=== PATIENT | female | born 1985 | race African-American/Black ===

== ENCOUNTER 2020-09-06 12:04 | Emergency (ER) | payer OTHER, SELFPAY ==
[2020-09-06 12:15] VITALS: BP 122/73; PULSE 124; RESP 18; TEMP 36.6; O2SAT 100
--- NOTE | 2020-09-06 12:28 | ED.SKABFB ---
HPI - Skin/Abscess/Foreign Bdy General Chief complaint: Skin/Abscess/Foreign Body Stated complaint: Boil Time Seen by Provider: 09/06/20 12:28 Source: patient Mode of arrival: ambulatory Limitations: no limitations History of Present Illness HPI narrative: Davis Sevilla is a 34 yo female with a PMH of WPW with perianal swelling and pain with abscess at R of anus - started 3-4 days ago- indurated and very tender 06/17 Related Data Home Medications Medication Instructions Recorded Confirmed propranolol 40 mg PO PRN 09/06/20 09/06/20 valacyclovir 500 mg PO DAILY 09/06/20 09/06/20 Allergies Allergy/AdvReac Type Severity Reaction Status Date / Time No Known Allergies Allergy Unverified 09/06/20 12:20 Review of Systems Review of Systems: Narrative: CONSTITUTIONAL: Denies fever, chills, sweats. EYES: Denies visual changes, redness, discharge. ENT: Denies rhinorrhea, congestion, sore throat, otalgia. CARDIOVASCULAR: Denies chest pain, palpitations, edema. RESPIRATORY: Denies dyspnea, wheezing, cough GASTROINTESTINAL: Denies abdominal pain, nausea, vomiting, diarrhea. GENITOURINARY: Denies dysuria, hematuria, abnormal discharge indurated lesion to right of anus SKIN: Denies rash or itching. NEUROLOGIC: Denies numbness, or focal weakness. PSYCHIATRIC: Denies anxiety or depression. PMFSH Past Medical History Medical History (Updated 09/06/20 @ 12:56 by Audra Stewart CNP) HSV (herpes simplex virus) anogenital infection Ksset-Xlfsbvhqz-Myjsb (WPW) syndrome Family History Family History Other Heart disease Hypertension Social History Social History Smoking packs per day: 0.25 Smoking cigarettes per day: 5.0 Smoking status: Current every day smoker Alcohol intake: current Gender identity (if verbalized by the patient): Female Comments At time of signature, I agree with nursing past medical, surgical, social and family history. There is no relevant family history pertinent to the presenting complaint. Exam Narrative: Exam Narrative: GENERAL: This is a well-nourished, well-developed patient, in mild distress. HEAD: normocephalic, atraumatic. EYES: Sclera clear/white. Vision is grossly intact. EARS: External ears normal,. Hearing grossly intact. NOSE: External nose normal without nasal discharge, nares without redness, no rhinorrhea. THROAT: Mucous membranes moist, p NECK: Neck supple, CARDIOVASCULAR: Tachycardic rate and rhythm without murmurs, gallops, or rubs. RESPIRATORY: Clear to auscultation. Breath sounds equal bilaterally. No wheezes, rales, or rhonchi. GASTROINTESTINAL: Abdomen soft, SKIN: warm, intact with no suspicious lesions or rash, good texture and turgor. hemorrhoid on R of anus. Perianal induration to the right of anus that is tender and has weber on it NEURO: awake, alert, and oriented to person, place and time. There were no obvious focal neurologic abnormalities. Steady gait EXTREMITIES: Normal range of motion. BACK: Nontender without deformity Course Course Emergency Course: Came to express care with indurated lesion to the right of anus I&D of induration; started on Bactrim and Keflex-instructions keep area clean and dry Follow-up with PCP Vital Signs Vital signs: Vital Signs Temperature 97.9 F 09/06/20 12:15 Pulse Rate 124 H 09/06/20 12:15 Respiratory Rate 18 09/06/20 12:15 Blood Pressure 122/73 09/06/20 12:15 Pulse Oximetry 100 09/06/20 12:15 Temperature 97.9 F 09/06/20 12:15 Pulse Rate 124 H 09/06/20 12:15 Respiratory Rate 18 09/06/20 12:15 Blood Pressure 122/73 09/06/20 12:15 Pulse Oximetry 100 09/06/20 12:15 Procedures Abscess I/D mali-rectal: Date of Incision: 09/06/20 Time of Incision: 12:35 Side (if applicable): right Local Anesthetic: lidocaine 1% Amount of anesthe
[2020-09-06] MEDS: LIDOCAINE HCL 1% LOCAL INJ 20 ML VIAL 3 ML INFILTRATE (12:47)
== END 2020-09-06 13:00 | disposition home or self-care (01) ==
PROVIDERS: Emergency Provider Nurse Practitioner; PCP Physician Assistant
DX: K61.0 Anal abscess (principal); F17.210 Nicotine dependence, cigarettes, uncomplicated; I45.6 Pre-excitation syndrome
CPT/HCPCS: 46050; 99213; G0463

== ENCOUNTER 2022-01-29 14:42 | Outpatient (CLI) | payer OTHER, SELFPAY ==
[2022-01-29] VITALS (8 sets, daily range): BP systolic 112–127; BP diastolic 67–78; PULSE 84–97; BMI 25.9
[2022-01-29 15:32] LABS: Basophils Percent Auto 0.2 % (0.2-1.2); Eosinophils Absolute Auto 0.1 K/mm3 (0-0.3); Eosinophils Percent Auto 1.2 % (0-4.4); Hematocrit 29.3 % (37.0-47.0); Hemoglobin 9.8 g/dL (12.0-15.0); Immature Granulocyte Absolute 0.04 K/mm3 (0.00-0.031); Immature Granulocyte Percent A 0.7 % (0-0.5); Lymphocytes Absolute Auto 1.45 K/mm3 (0.9-3.2); Lymphocytes Percent Auto 24.6 % (18.3-44.2); Mean Corpuscular HGB Conc 33.4 g/dl (32-36); Mean Corpuscular Hemoglobin 26.2 pg (26-34); Mean Corpuscular Volume 78.3 fl (80-100); Mean Platelet Volume 8.9 fl (7.4-10.4); Monocytes Absolute Auto 0.5 K/mm3 (0.1-0.6); Neutrophils Absolute Auto 3.9 K/mm3 (1.3-6.7); Neutrophils Percent Auto 65.3 % (45.5-73.1); Platelet Count Result 245 k/mm3 (150-375); Red Blood Count 3.74 M/mm3 (4.2-5.4); Red Cell Distribution Width 14.7 % (11.5-14.5); White Blood Count 5.9 K/mm3 (4.5-10.0)
[2022-01-29 15:36] LABS: Add Urine Microscopic? YES; Appearance Urine Clear (Clear); Bilirubin Urine Negative (Negative); Blood Urine 1+ (Negative); Color Urine Yellow (Yellow); Glucose Urine UA Negative (Negative); Ketones Urine Trace mg/dL (Negative); Leukocyte Esterase Ur Negative LEU/UL (Negative); Mucus Urine Rare /lpf; Nitrate Urine Negative (Negative); Protein Urine Negative (Negative); RBC Urine 21-50 /hpf (0-2); Specific Grav Ur 1.025 (1.001-1.035); Squamous Epithelial Cell Urine Rare /hpf (Few); WBC Urine 0-3 /hpf
[2022-01-29 15:40] LABS: Creatinine Urine 164.8 mg/dL; Total Protein Urine Random 8 mg/dL; Ur Ttl Prot Creatinine Ratio 0.05 mg/mg (0-0.20)
[2022-01-29 15:42] LABS: Alanine Aminotransferase 22 U/L (4-35); Albumin Level 3.7 g/dL (3.5-5.1); Alkaline Phosphatase 118 U/L (38-126); Anion Gap 7 mmol/L (8-16); Aspartate Amino Transferase 25 U/L (14-36); Bilirubin,Total 0.1 mg/dL (0.2-1.3); Blood Urea Nitrogen 8 mg/dL (7-17); Carbon Dioxide 21 mmol/L (22-30); Chloride 109 mmol/L (98-107); Estimated CRCL calculation 106 ml/min; Estimated Glomerular Filt Rate > 60; Glucose 112 mg/dL (65-110); Potassium 3.5 mmol/L (3.4-5.0); Sodium 137 mmol/L (137-145); Uric Acid 4.1 mg/dL (2.5-7.5)
--- NOTE | 2022-01-29 16:07 | PC.NURSE ---
Dr. Ludwig informed of BP's and lab results including RBC's in urine. Discussed non-reactive NST with moderate variability and no decels. MD wants to come down and see pt. If NST not reactive in another 30 mins, order a BPP.
--- NOTE | 2022-01-29 17:01 | PC.NURSE ---
Dr. Ludwig on unit to see pt. Informed FHR tracing became reactive.
== END 2022-01-29 17:48 | disposition home or self-care (01) ==
LOC: ANHOBOP 14:53 → ANHOBPP 14:53
PROVIDERS: PCP Physician Assistant; Visit Provider Student in an Organized Health Care Education/Training Program
DX: O13.9 Gestational [pregnancy-induced] hypertension without significant proteinuria, unspecified trimester (principal); Z3A.00 Weeks of gestation of pregnancy not specified
CPT/HCPCS: 36415; 59025; 80053; 81001; 82570; 84156; 84550; 85025; 87086; 99199

== ENCOUNTER 2023-11-30 15:49 | Outpatient (CLI) | payer OTHER, SELFPAY ==
--- NOTE | ~2023-11-30 | US_ITS ---
EXAMINATION: US pelvic complete w TV DATE: 11/30/2023 17:07 INDICATION: Irregular menstruation. Comparison:No prior studies for comparison. TECHNIQUE: Multiple transabdominal and endovaginal sonographic images of the pelvis performed. FINDINGS: The uterus measures 6.8 x 3.6 x 5.8 cm. Uterus is retroverted. The endometrial complex nestor ures 5. The right ovary measures 4.1 x 2.2 x 2.6 cm and the left ovary measures 2.6 x 1.5 x 1.2 cm. There ar e small follicles in each ovary. Normal doppler signal in both ovaries. There is free fluid in the pelvis. There are no abnormal masses seen on either side. IMPRESSION: 1. Unremarkable pelvic ultrasound. Reviewed, dictated and finalized at location B. AMAKER
== END 2023-11-30 15:50 | disposition home or self-care (01) ==
PROVIDERS: PCP Physician Assistant; Visit Provider Obstetrics & Gynecology
DX: N92.6 Irregular menstruation, unspecified (principal)
CPT/HCPCS: 76830; 76856

== ENCOUNTER 2024-03-25 09:09 | Emergency (ER) | payer OTHER, SELFPAY ==
--- NOTE | ~2024-03-25 | XR_ITS ---
EXAMINATION: XR abdomen/kub 1V DATE: 03/25/2024 10:23 INDICATION: Constipation. TECHNIQUE: A supine view of the abdomen on 2 radiographs was obtained. COMPARISON: None. FINDINGS: There are no dilated loops of bowel. There is a moderate volume of stool in the colon. Calc ifications in the pelvis are likely phleboliths. IMPRESSION: 1. Nonobstructive bowel gas pattern. Reviewed, dictated and finalized at location A.
[2024-03-25 09:21] VITALS: BP 119/85; PULSE 62; RESP 16; TEMP 36.6; O2SAT 100
--- NOTE | 2024-03-25 10:14 | ED.ABDPAIN ---
HPI - Abdominal Pain General Chief Complaint: Abdominal Pain Stated Complaint: bowel obstruction Time Seen by Provider: 03/25/24 09:45 History of Present Illness HPI narrative: This is a 38-year-old female, with recent history stroke, aspirin and Plavix, who presents to the emergency department complaining of constipation. She states he has 1 limping with past small amount of stool. She was able to pass gas today. She complains of very mild cramping abdominal pain. She denies nausea, vomiting and has no other complaints at this time. Related Data Home Medications Medication Instructions Recorded Confirmed diltiazem HCl 120 mg 120 mg PO DAILY 01/29/22 07/19/23 capsule,extended release 24 hr, controlled (DILT-XR) Allergies Allergy/AdvReac Type Severity Reaction Status Date / Time No Known Allergies Allergy Verified 07/19/23 07:39 Review of Systems Review of Systems: Menstrual period ongoing All systems reviewed & are unremarkable except as noted in HPI and below PMFSH Past Medical History Medical History History of 12/20/2002-D&C History of vaginal delivery x 3 HSV (herpes simplex virus) anogenital infection Acdem-Cnnwtefzr-Gqykv (WPW) syndrome Surgical History Surgical History History of radiofrequency ablation (RFA) procedure for cardiac arrhythmia 2018 [place] teeth removed 2016 Family History Family History Mother Heart disease Grandparent Asthma Other Hypertension Social History Social History Smoking packs per day: 0.25 Smoking cigarettes per day: 5.0 Smoking status: Former smoker Alcohol intake: former Alcohol use details: Not since Substance use: never Gender identity (if verbalized by the patient): Female Exam Narrative: GENERAL: Well-developed, well-nourished, and in no acute distress. HEAD: Normocephalic, atraumatic. EYES: PERRLA and EOMI. CHEST: Clear to auscultation. No respiratory distress. No wheezes rales or rhonchi HEART: Regular rate and rhythm. No murmur heard. Normal peripheral pulses. ABDOMEN: Soft, nontender, nondistended, normal active bowel sounds. NEURO: Alert and oriented x3. No focal deficit. Moving all 4 limbs spontaneously PSYCH: Normal mood and affect. Course Course Emergency Course: 11:10 - KUB not concerning for obstructive pattern and shows a moderate volume of stool. Enema pending. 12:37 - The patient had a small bowel movement after an enema. Will discharge with recommendation for laxatives and enema at home. I discussed the findings and recommendations with the patient. Discussed return and emergency precautions including signs/symptoms of acute abdomen and bowel obstruction. The patient voiced understanding and agreement with the plan. All questions answered to her satisfaction. Vital Signs Vital signs: Vital Signs Temperature 98 F 03/25/24 09:21 Pulse Rate 62 03/25/24 09:21 Respiratory Rate 16 03/25/24 09:21 Blood Pressure 119/85 03/25/24 09:21 Pulse Oximetry 100 03/25/24 09:21 Temperature 97.8 F 03/25/24 12:51 Pulse Rate 64 03/25/24 12:51 Respiratory Rate 15 03/25/24 12:51 Blood Pressure 121/86 03/25/24 12:51 Pulse Oximetry 98 03/25/24 12:51 MDM - Abdominal Pain MDM Narrative Medical decision making narrative: Plan: Imaging, abdomen, reassess Differential Diagnosis Differential diagnosis: Likely constipation, small bowel obstruction and other Imaging Data Radiologist's impression: ITS Impressions Abdomen X-Ray 03/25/24 10:27 IMPRESSION: 1. Nonobstructive bowel gas pattern. Discharge Plan Discharge Clinical Impression: Constipation Qualifiers: Constipation type: unspecified constipation type Qualif
[2024-03-25 12:51] VITALS: BP 121/86; PULSE 64; RESP 15; TEMP 36.6; O2SAT 98
== END 2024-03-25 12:53 | disposition home or self-care (01) ==
PROVIDERS: Emergency Provider Preventive Medicine Aerospace Medicine; PCP Physician Assistant
DX: K59.00 Constipation, unspecified (principal); I45.6 Pre-excitation syndrome
CPT/HCPCS: 74018; 99283

== ENCOUNTER 2024-07-04 17:44 | Observation (INO) | payer OTHER, SELFPAY ==
--- NOTE | ~2024-07-04 | XR_ITS ---
EXAMINATION: XR chest 1V portable DATE: 07/04/2024 18:45 INDICATION: Cerebrovascular accident. Left-sided numbness. TECHNIQUE: A single frontal view of the chest was obtained. COMPARISON: None. FINDINGS: There is no pneumonia, pleural effusion, or pneumothorax. The heart size is normal. IMPRESSION: 1. No acute cardiopulmonary disease. Reviewed, dictated and finalized at location A.
--- NOTE | ~2024-07-04 | MR_ITS ---
MRI of the brain Clinical History: TIA Technique: Axial and sagittal T1-weighted images were acquired. These were followed by axial T2-weigh radha, diffusion weighted, gradient, and FLAIR images. Findings: There is no abnormal signal in the brain parenchyma. No acute infarct, intracranial hemorrh age, or mass lesion. Ventricles and subarachnoid spaces are unremarkable. Orbits are unremarkable. Paranasal sinuses and m astoid air cells are essentially clear. Major intracranial flow voids appear intact. Sagittal midline structures are intact. IMPRESSION: Unremarkable exam. Reviewed, dictated and finalized at location M. IMPRESSION: Unremarkable exam.
--- NOTE | ~2024-07-04 | CT_ITS ---
EXAMINATION: CT brain wo con DATE: 07/04/2024 17:59 INDICATION: Left-sided weakness. TECHNIQUE: Computed tomography (CT) of the head was performed without intravenous contrast. The mA wa s adjusted according to patient size. Iterative reconstruction technique was employed. The dose-lengt h product was 605.33 mGy-cm. COMPARISON: Head CT 08/31/2018 FINDINGS: There is no intracranial hemorrhage, acute infarction, or abnormal intracranial mass lesion . The ventricles are normal in size. The mastoid air cells are normal. The paranasal sinuses are peyton r. The orbits are normal. IMPRESSION: 1. Normal brain. Reviewed, dictated and finalized at location A. IMPRESSION: 1. Normal brain.
--- NOTE | ~2024-07-04 | CT_ITS ---
EXAMINATION: CTA brain carotid DATE: 07/04/2024 18:24 INDICATION: Right-sided numbness. Vertebral artery dissection. TECHNIQUE: Computed tomographic angiography (CTA) of the head was performed with 100 mL Omnipaque-350 intravenous contrast. CTA of the neck was performed with intravenous contrast. Automated exposure co ntrol and iterative reconstruction technique were employed. The dose-length product was 1019.33 mGy-c m. Maximum intensity projection and volume rendered 3D-reconstructions were created by the technologi st on a separate workstation. COMPARISON: Head CT 07/04/2024 FINDINGS: HEAD CTA: There is no intracranial hemorrhage, acute infarction, or abnormal intracranial mass lesion . The ventricles are normal in size. The orbits are normal. There is mild mucosal thickening in the p aranasal sinuses. The mastoid air cells are normal. Left vertebral artery is dominant. There is no si gnificant stenosis of basilar artery or the posterior cerebral arteries. The posterior communicating arteries are normal. There is no significant stenosis of intracranial internal carotid arteries or an terior or middle cerebral arteries. Anterior communicating artery is normal. There is no aneurysm. NECK CTA: There is mild emphysema. There are no pathologically enlarged lymph nodes. There is no sign ificant stenosis of the vertebral arteries. There is no significant plaque in the proximal internal c arotid arteries. There is 0% stenosis of the proximal right internal carotid artery relative to altagracia l distal artery lumen diameter (NASCET criteria). There is 0% stenosis of the proximal left internal carotid artery relative to normal distal artery lumen diameter. There is kyphosis of cervical spine. IMPRESSION: 1. Normal brain. No aneurysm or significant intracranial arterial stenosis. 2. 0% stenosis of the proximal internal carotid arteries relative to normal distal artery lumen diame ters (NASCET criteria). 3. Normal vertebral arteries. Reviewed, dictated and finalized at location A. IMPRESSION: 1. Normal brain. No aneurysm or significant intracranial arterial stenosis. 2. 0% stenosis of the proximal internal carotid arteries relative to normal dis moira artery lumen diameters (NASCET criteria). 3. Normal vertebral arteries.
[2024-07-04 17:52] LABS: Glucose Point of Care 123 mg/dl (65-105)
--- NOTE | 2024-07-04 17:53 | ECG_ITS ---
Test Date: 2024-07-04 18:14:56 Measurements Intervals [place] Rate: 85 P: 52 IN: 87 QRS: -16 QRSD: 162 T: 146 QT: 427 QTc: 509 Interpretive Statements SINUS RHYTHM LEFT BUNDLE BRANCH BLOCK ABNORMAL ECG * No previous ECG available for comparison Electronically Signed On 07-06-2024 12:51:36 CDT by Vaughn Desouza M.D.
--- NOTE | 2024-07-04 18:04 | ED.NEUROSD ---
HPI - Neuro Symptoms/Deficit General Chief Complaint: Suspected CVA Stated Complaint: stroke symptom Time Seen by Provider: 07/04/24 17:51 History of Present Illness HPI Narrative: 38-year-old female presenting as a stroke alert. States that she recently had a stroke this feels similarly. States that she has numbness in her left arm and she feels like she is experiencing nystagmus. States that this is what happened last time. 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 states that she was left with residual numbness on the left side but today she felt weakness in her left arm. States that she again has pressure in her head as well. Further history limited secondary to acuity of condition. Related Data Home Medications Medication Instructions Recorded Confirmed diltiazem HCl 120 mg 120 mg PO DAILY 01/29/22 07/19/23 capsule,extended release 24 hr, controlled (DILT-XR) Allergies Allergy/AdvReac Type Severity Reaction Status Date / Time No Known Allergies Allergy Verified 07/19/23 07:39 Review of Systems Review of Systems: All systems reviewed & are unremarkable except as noted in HPI and below PMFSH Past Medical History Medical History History of 12/20/2002-D&C History of vaginal delivery x 3 HSV (herpes simplex virus) anogenital infection Kjwri-Ybykpgqgb-Tfnop (WPW) syndrome Surgical History Surgical History History of radiofrequency ablation (RFA) procedure for cardiac arrhythmia 2018 [place] teeth removed 2015 Family History Family History Mother Heart disease Grandparent Asthma Other Hypertension Social History Social History Smoking packs per day: 0.25 Smoking cigarettes per day: 5.0 Smoking status: Former smoker Alcohol intake: former Alcohol use details: Not since Substance use: never Gender identity (if verbalized by the patient): Female Exam Narrative: GENERAL: Nontoxic, no acute distress HEAD: Normocephalic, atraumatic. EYES: PERRLA and EOMI. ENT: grossly unremarkable NECK: Supple. CHEST: Clear to auscultation. No respiratory distress. HEART: Regular rate and rhythm ABDOMEN: Soft, nontender, nondistended EXTREMITIES: Normal range of motion SKIN: Warm, dry, no rash. NEURO: + left-sided sensory deficits with the patient states are chronic, 5/5 strength in all extremities, positive pronator drift on the left, no facial droop, aphasia, dysarthria PSYCH: Normal mood and affect. Course Vital Signs Vital signs: Vital Signs Temperature 98.2 F 07/04/24 18:08 Pulse Rate 95 07/04/24 18:08 Respiratory Rate 15 07/04/24 18:08 Blood Pressure 142/86 H 07/04/24 18:08 Pulse Oximetry 100 07/04/24 18:08 Oxygen Delivery Room Air 07/04/24 18:08 Temperature 98.5 F 07/04/24 21:09 Pulse Rate 83 07/04/24 21:09 Respiratory Rate 12 07/04/24 21:09 Blood Pressure 128/91 H 07/04/24 21:09 Pulse Oximetry 100 07/04/24 21:09 Oxygen Delivery Room Air 07/04/24 18:18 MDM - Neuro Symptoms/Deficit MDM Narrative Medical decision making narrative: 38-year-old female presenting as a stroke alert. NIH of 2 due to left arm drift and sensory deficits. The sensory deficits are chronic according to the patient. CTA brain/carotid w/o acute abnormalities. On re-evaluation, pt states the arm weakness feels like it has resolved. She continues to have 5/5 strength in all extremities. Spoke with neurology at [facility] as the patient was admitted there in the spring with a vertebral dissection. Advises MRI in the morning, no need for transfer. Call out to our neurologist. spoke with the hospitalist was accepted her for admission. MRI without contrast has been ordered. Patient is a
[2024-07-04 18:08] VITALS: BP 142/86; PULSE 95; RESP 15; TEMP 36.8; O2SAT 100
[2024-07-04 18:18] VITALS: BP 127/96; PULSE 90; PULSE 92; RESP 20; O2SAT 100
[2024-07-04 18:45] LABS: Basophils Percent Auto 0.5 % (0.2-1.2); Eosinophils Absolute Auto 0.1 K/mm3 (0-0.3); Eosinophils Percent Auto 1.4 % (0-4.4); Hematocrit 35.4 % (37.0-47.0); Hemoglobin 11.5 g/dL (12.0-15.0); Immature Granulocyte Absolute 0.01 K/mm3 (0.00-0.031); Immature Granulocyte Percent A 0.2 % (0-0.5); Lymphocytes Percent Auto 53.4 % (18.3-44.2); Mean Corpuscular HGB Conc 32.5 g/dl (32-36); Mean Corpuscular Volume 73.8 fl (80-100); Mean Platelet Volume 10.1 fl (7.4-10.4); Monocytes Absolute Auto 0.4 K/mm3 (0.1-0.6); Monocytes Percent Auto 8.8 % (2.6-8.5); Neutrophils Absolute Auto 1.5 K/mm3 (1.3-6.7); Neutrophils Percent Auto 35.7 % (45.5-73.1); Platelet Count Result 241 k/mm3 (150-375); Red Cell Distribution Width 14.4 % (11.5-14.5); White Blood Count 4.3 K/mm3 (4.5-10.0)
[2024-07-04 18:58] LABS: Alanine Aminotransferase 21 U/L (6-35); Albumin Level 4.4 g/dL (3.5-5.1); Alkaline Phosphatase 63 U/L (38-126); Anion Gap 12 mmol/L (4-12); Aspartate Amino Transferase 27 U/L (14-36); Bilirubin,Total 0.6 mg/dL (0.2-1.3); Blood Urea Nitrogen 12 mg/dL (7-17); Calcium 9.1 mg/dL (8.4-10.2); Carbon Dioxide 24 mmol/L (22-30); Chloride 100 mmol/L (98-107); Estimated CRCL calculation 65 ml/min; Estimated Glomerular Filt Rate > 60; Glucose 116 mg/dL (65-110); Potassium 3.4 mmol/L (3.4-5.0); Sodium 136 mmol/L (137-145)
[2024-07-04 19:07] LABS: Partial Thromboplastin Time 26.2 Seconds (22.3-36.8)
[2024-07-04 19:14] LABS: Troponin I < 0.012 ng/mL (0.000-0.034)
[2024-07-04 19:24] VITALS: BP 123/86; PULSE 81; RESP 12; O2SAT 100
[2024-07-04 21:02] LABS: Add Urine Microscopic? YES; Appearance Urine Clear (Clear); Bacteria Urine None Seen /hpf; Bilirubin Urine Negative (Negative); Blood Urine 1+ (Negative); Color Urine Yellow (Yellow); Glucose Urine UA Negative (Negative); Ketones Urine Negative (Negative); Leukocyte Esterase Ur Negative LEU/UL (Negative); Nitrate Urine Negative (Negative); Non Pathogenic Casts 0-2; Protein Urine Negative (Negative); RBC Urine 0-2 /hpf (0-2); Specific Grav Ur > 1.045 (1.001-1.035); Squamous Epithelial Cell Urine None Seen /hpf (Few); WBC Urine 0-5 /hpf (0-3); pH Urine 5.5 (5.0-9.0)
[2024-07-04 21:09] VITALS: BP 128/91; PULSE 83; RESP 12; TEMP 36.9; O2SAT 100
--- NOTE | 2024-07-04 21:11 | PC.NURSE ---
Called Dr. Magaña at 1926 and 2006.
[2024-07-04 21:13] LABS: Amphetamine Screen Urine Negative (Negative); Barbiturate Screen Urine Negative (Negative); Benzodiazepines Screen Urine Negative (Negative); Cannabinoid Screen Urine Negative (Negative); Cocaine Screen Urine Negative (Negative); Methadone Screen Urine Negative (Negative); Opiate Screen Urine Negative (Negative); Phencyclidine Screen Urine Negative (Negative)
--- NOTE | 2024-07-04 21:43 | ADMGEN ---
This patient, Davis Sevilla, was admitted to 2 Medical Room 260-01. Patient/family oriented to hospital policies and general routines including ID bracelet, bed and alarms, visiting hours, pain management, procedures, bathroom and other care routines, personal items, smoking policy, room service/diet, and visiting hours. Information on how to activate the Rapid Response Team has been discussed. Patient/Family are encouraged to report perceived risks to care and to ask questions if they do not understand what they are told or what they should do.
[2024-07-04 21:45] VITALS: BP 122/76; PULSE 77; RESP 18; TEMP 36.6; O2SAT 100
[2024-07-04 22:00] VITALS: BMI 25.4
[2024-07-05] VITALS: PULSE 105
--- NOTE | 2024-07-05 00:19 | PM.IMHP ---
H&P: HPI History of Present Illness Date/Time: 07/05/24 00:19 Chief Complaint: LUE weakness Narrative: This is a 38-year-old female with past medical history significant for hypertension, stroke, WPW. Patient presents to the emergency room due to weakness of left upper extremity. Patient has been her usual state of health. Denies any speech disturbance, denies any gait disturbance. Preliminary workup was unremarkable. Patient has been placed in observation for further evaluation management and treatment. EXAMINATION: CT brain wo con DATE: 07/04/2024 17:59 INDICATION: Left-sided weakness. TECHNIQUE: Computed tomography (CT) of the head was performed without intravenous contrast. The mA was adjusted according to patient size. Iterative reconstruction technique was employed. The dose-length product was 605.33 mGy-cm. COMPARISON: Head CT 08/31/2018 FINDINGS: There is no intracranial hemorrhage, acute infarction, or abnormal intracranial mass lesion. The ventricles are normal in size. The mastoid air cells are normal. The paranasal sinuses are clear. The orbits are normal. IMPRESSION: 1. Normal brain. EXAMINATION: CTA brain carotid DATE: 07/04/2024 18:24 INDICATION: Right-sided numbness. Vertebral artery dissection. TECHNIQUE: Computed tomographic angiography (CTA) of the head was performed with 100 mL Omnipaque-350 intravenous contrast. CTA of the neck was performed with intravenous contrast. Automated exposure control and iterative reconstruction technique were employed. The dose-length product was 1019.33 mGy-cm. Maximum intensity projection and volume rendered 3D-reconstructions were created by the technologist on a separate workstation. COMPARISON: Head CT 07/04/2024 FINDINGS: HEAD CTA: There is no intracranial hemorrhage, acute infarction, or abnormal intracranial mass lesion. The ventricles are normal in size. The orbits are normal. There is mild mucosal thickening in the paranasal sinuses. The mastoid air cells are normal. Left vertebral artery is dominant. There is no significant stenosis of basilar artery or the posterior cerebral arteries. The posterior communicating arteries are normal. There is no significant stenosis of intracranial internal carotid arteries or anterior or middle cerebral arteries. Anterior communicating artery is normal. There is no aneurysm. NECK CTA: There is mild emphysema. There are no pathologically enlarged lymph nodes. There is no significant stenosis of the vertebral arteries. There is no significant plaque in the proximal internal carotid arteries. There is 0% stenosis of the proximal right internal carotid artery relative to normal distal artery lumen diameter (NASCET criteria). There is 0% stenosis of the proximal left internal carotid artery relative to normal distal artery lumen diameter. There is kyphosis of cervical spine. IMPRESSION: 1. Normal brain. No aneurysm or significant intracranial arterial stenosis. 2. 0% stenosis of the proximal internal carotid arteries relative to normal distal artery lumen diameters (NASCET criteria). 3. Normal vertebral arteries. Review of Systems Review of Systems: LUE weakness [facility] Past Medical History Medical History History of 12/20/2002-D&C History of vaginal delivery x 3 HSV (herpes simplex virus) anogenital infection Bprxi-Nxhkedwfa-Pnoti (WPW) syndrome Surgical History Surgical History History of radiofrequency ablation (RFA) procedure for cardiac arrhythmia 2017 [place] teeth removed 2016 Family History Family History Mother Heart disease Grandparent Asthma Other Hypertension Social History Social History Smoking packs per day: 0.25 Smoking cigarettes per day: 5.0
[2024-07-05 04:00] VITALS: PULSE 90
[2024-07-05 06:00] VITALS: BP 111/71; PULSE 89; RESP 18; TEMP 36.6; O2SAT 98
[2024-07-05] MEDS: ASPIRIN 81 MG CHEWABLE TABLET PO (10:33)
[2024-07-05] MEDS: CLOPIDOGREL BISULFATE 75 MG TABLET PO (10:33)
[2024-07-05] MEDS: hydrALAZINE 10 MG TABLET PO (10:33)
[2024-07-05] MEDS: lisinopriL 5 MG TABLET PO (10:33)
[2024-07-05] MEDS: ACETAMINOPHEN 325 MG TABLET 650 MG PO (10:42)
--- NOTE | 2024-07-05 11:48 | WPDNEURCNPN ---
Assessment and Plan Assessment and plan (1) TIA (transient ischemic attack): Code(s): G45.9 - Transient cerebral ischemic attack, unspecified Status: Acute Plan TIA by history with previous evaluation as documented exam is completely non focal patient can be discharged on the same medication what she has been taking with instruction to follow with her family physician or neurologist as an outpatient. Consult date: 07/05/24 HPI: Davis Sevilla is a 38 year old female To the hospital through the emergency room with the history of having had stroke in the past. Complaining of numbness in her left upper extremity along with the experience of nystagmus and also making a statement that is what happened last time as well. 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 Patient has been taking diltiazem XR 120mg daily and she is not allergic to any medications. She does have ongoing history of being a former smoker former ,alcohol intake and her initial exam in the emergency room was consistent with a pronator drift on the left but no facial droop. Her vital signs were normal, CBC was normal, BMP was normal and complete lab was normal, CT of the head was negative ,CTA of the head and neck was negative for the bleed, aneurysm or any vascular stenosis, chest x-ray was negative she was continued on aspirin 81mg daily ,atorvastatin 40mg at night, hydralazine 10mg daily lisinopril 5mg daily, Review of Systems Review of Systems: All systems reviewed & are unremarkable except as noted in HPI and below PMFSH Past Medical History Medical History History of 12/20/2002-D&C History of vaginal delivery x 3 HSV (herpes simplex virus) anogenital infection Zvpwa-Tjdmpeodh-Gkctq (WPW) syndrome Surgical History Surgical History History of radiofrequency ablation (RFA) procedure for cardiac arrhythmia 2018 [place] teeth removed 2015 Family History Family History Mother Heart disease Grandparent Asthma Other Hypertension Social History Social History Smoking packs per day: 0.25 Smoking cigarettes per day: 5.0 Smoking status: Former smoker Tobacco type: cigarettes Alcohol intake: never Alcohol use details: Not since Substance use: never Substance use type: does not use Do You Feel Safe in your Home?: Yes Lack of Transportation: No Lack of Food: Never True Current Housing: I Have Housing Concerned About Future Housing: No Difficulty Paying Gas/Electric Bills: No Difficulty Paying for Meds: No Currently Unemployed: No Education: High School Diploma/GED Difficulty w/ Childcare or Family Care: No Gender identity (if verbalized by the patient): Female Spiritual care concerns: No Meds Home Medications and Allergies Home Medications Medication Instructions Recorded Confirmed Type aspirin 81 mg chewable tablet 81 mg PO DAILY 07/04/24 07/04/24 History atorvastatin 40 mg tablet 40 mg PO HS 07/04/24 07/04/24 History clopidogrel 75 mg tablet 75 mg PO DAILY 07/04/24 07/04/24 History docusate sodium 50 mg capsule 50 mg PO DAILY 07/04/24 07/04/24 History (Stool Softener) hydralazine 10 mg tablet 10 mg PO DAILY 07/04/24 07/04/24 History lisinopril 5 mg tablet 5 mg PO DAILY 07/04/24 07/04/24 History Allergies Allergy/AdvReac Type Severity Reaction Status Date / Time No Known Allergies Allergy Verified 07/19/23 07:39 Vital Signs Vital Signs - 24 hr 07/04/24 18:08 07/04/24 18:18 07/04/24 18:18 Temperature 36.8 C Pulse Rate 95 92 90 Respiratory Rate 15 20 20 Blood Pressure 14
--- NOTE | 2024-07-05 13:13 | PM.DS ---
DS: Admitting Diagnosis Discharge Date 07/05/2024 Admitting Diagnosis Left Arm Weakness DS: Discharge Diagnosis Discharge Diagnosis (1) Left arm weakness: Code(s): R29.898 - Other symptoms and signs involving the musculoskeletal system Status: Acute Plan Patient cleared for discharge per neurologist. Patient to follow-up with her PCP and her neurologist outpatient. DS: Summary Hospital Course Reason for hospitalization: Left arm weakness Hospital Course: Patient presented to the emergency room with the history of having had stroke in the past. She complained of numbness in her left upper extremity along with the experience of nystagmus and also making a statement that is what happened last time as well. She reported that her previous stroke was related to dissecting vertebral artery and she was left with residual numbness on the left side of her body in addition to the weakness in her left upper extremity. Patient has been taking diltiazem XR 120mg daily and she is not allergic to any medications. She does have ongoing history of being a former smoker former and alcohol intake. Her initial exam in the emergency room was consistent with a pronator drift on the left but no facial droop. Her vital signs were normal, CBC was normal, BMP was normal and complete lab was normal, CT of the head was negative ,CTA of the head and neck was negative for the bleed, aneurysm or any vascular stenosis, MRI brain unremarkable, chest x-ray negative. Patient has been seen by the neurologist and cleared for discharge with continuation of her previous medications, including aspirin 81mg daily, clopidogrel 75 mg, atorvastatin 40mg at night, hydralazine 10mg daily and lisinopril 5mg timmy. Patient's symptoms have completely resolved and she's medically stable for discharge. No acute distressful symptoms were noted or reported prior to discharge. Status at Discharge Functional status at discharge: independent ambulation Overall status at discharge: patient is back to baseline Time Spent with Patient Time attestation: Total time spent providing and/or coordinating discharge services: Time spent: Greater than 30 minutes Exam Narrative: General: Well appearing, no acute distress. HEENT: Atraumatic, PERRL, EOMI. Neck: Supple. Cardiovascular: RRR, no murmurs. Respiratory: Lungs clear bilaterally. GI: Soft, non-tender, +ve bowel sounds on all quadrants. Skin: Warm and dry, no lesions noted. Extremities: No edema noted. Neurology: Well oriented. No focal neuro deficits noted. Psych: Pleasant and co-operative. DS: Data Data Completed and Pending Labs on day of discharge: Labs from last 24 hours 07/04/24 07/04/24 07/04/24 20:52 18:37 17:49 WBC 4.3 L RBC 4.80 Hgb 11.5 L Hct 35.4 L MCV 73.8 L MCH 24.0 L MCHC 32.5 RDW 14.4 Plt Count 241 MPV 10.1 Immature Gran % (Auto) 0.2 Neut % (Auto) 35.7 L Lymph % (Auto) 53.4 H Josephine % (Auto) 8.8 H Eos % (Auto) 1.4 Baso % (Auto) 0.5 Lymph # (Auto) 2.30 Josephine # (Auto) 0.4 Eos # (Auto) 0.1 Baso # (Auto) 0.0 Abs Immat Gran (auto) 0.01 Absolute Neuts (auto) 1.5 Absolute Nucleated RBC 0.000 Nucleated RBC % 0.0 PT 14.0 INR 1.0 APTT 26.2 Sodium 136 L Potassium 3.4 Chloride 100 Carbon Dioxide 24 Anion Gap 12 BUN 12 Creatinine 0.80 Estim Creat Clear Calc 65 Estimated GFR > 60 Glucose 116 H POC Capillary Glucose 123 H Calcium 9.1 Total Bilirubin 0.6 AST 27 ALT 21 Alkaline Phosphatase 63 Troponin I < 0.012 Total Protein 8.0 Albumin 4.4 Urine Color Yellow Urine Appearance Clear Urine pH 5.5 Ur Specific [place] > 1.045 H Urine Protein Negative Urine Glucose (UA) Negative Urine Ketones Negative Ur Blood (Man) 1+ H Urine Nitrate Negative Urine Bilirubin Negative Urine Urobilinogen 1.0 Leukocyte Esterase Rfl Negative U
== END 2024-07-05 15:40 | disposition home or self-care (01) ==
LOC: ANHED 18:40 → ANH2MED 21:29
PROVIDERS: Admitting Provider Internal Medicine; Emergency Provider Emergency Medicine; PCP Physician Assistant; Visit Provider Internal Medicine
DX: G45.9 Transient cerebral ischemic attack, unspecified (principal); R29.702 NIHSS score 2; I10 Essential (primary) hypertension; I45.6 Pre-excitation syndrome; Z86.73 Personal history of transient ischemic attack (TIA), and cerebral infarction without residual deficits; Z87.891 Personal history of nicotine dependence
CPT/HCPCS: 36415; 70450; 70496; 70498; 70551; 71045; 80053; 80307; 81001; 82948; 84484; 85025; 85610; 85730; 93005; 99285; A9270; G0378; Q9967

== ENCOUNTER 2024-09-24 13:58 | Emergency (ER) | payer OTHER, SELFPAY ==
[2024-09-24 14:15] VITALS: BP 144/81; PULSE 72; RESP 16; TEMP 36.3; O2SAT 99
--- NOTE | 2024-09-24 14:31 | ED.FEMALEGU ---
HPI - Female Genitourinary General Chief complaint: Urogenital-Female Stated complaint: right side pain Time Seen by Provider: 09/24/24 14:31 Source: patient, RN notes reviewed and old records reviewed Mode of arrival: ambulatory Limitations: no limitations History of Present Illness HPI Narrative: Patient presents with complaints of dysuria and right-sided flank pain that has been present for 2-3 days. She has not taken anything for her symptoms. She does report that she just began menstrual period yesterday, has menstrual cramps along with this discomfort. She denies any fever, chills, sweats. She denies any nausea or vomiting. She has not taken any medication for her symptoms. She is not in any distress at this time. Related Data Home Medications Medication Instructions Recorded Confirmed aspirin 81 mg chewable tablet 81 mg PO DAILY 07/04/24 09/24/24 atorvastatin 40 mg tablet 40 mg PO HS 07/04/24 09/24/24 clopidogrel 75 mg tablet 75 mg PO DAILY 07/04/24 09/24/24 docusate sodium 50 mg capsule 50 mg PO DAILY 07/04/24 09/24/24 (Stool Softener) hydralazine 10 mg tablet 10 mg PO DAILY 07/04/24 09/24/24 lisinopril 5 mg tablet 5 mg PO DAILY 07/04/24 09/24/24 gabapentin 100 mg capsule 100 mg PO DAILY 09/24/24 09/24/24 valacyclovir 500 mg tablet 500 mg PO BID 09/24/24 09/24/24 Allergies Allergy/AdvReac Type Severity Reaction Status Date / Time No Known Allergies Allergy Verified 09/24/24 14:19 Review of Systems Review of Systems: All systems reviewed & are unremarkable except as noted in HPI and below Constitutional: Constitutional: Reports no additional constitutional complaints ENT: Reports system reviewed and no additional complaints, except as documented Cardiovascular: Cardiovascular: Reports no additional cardiovascular complaints Respiratory: Respiratory: Reports no additional respiratory complaints Gastrointestinal: Gastrointestinal: Reports no additional gastrointestinal complaints Genitourinary: Genitourinary: Reports no additional female genitourinary complaints, Reports as per HPI, Reports dysuria and Reports urinary urgency PMFSH Past Medical History Medical History History of 12/20/2002-D&C History of vaginal delivery x 3 HSV (herpes simplex virus) anogenital infection Cftkj-Htkfstrln-Fsass (WPW) syndrome Surgical History Surgical History History of radiofrequency ablation (RFA) procedure for cardiac arrhythmia 2018 [place] teeth removed 2016 Family History Family History Mother Heart disease Grandparent Asthma Other Hypertension Social History Social History Smoking packs per day: 0.25 Smoking cigarettes per day: 5.0 Smoking status: Former smoker Tobacco type: cigarettes Alcohol intake: never Alcohol use details: Not since Substance use: never Substance use type: does not use Do You Feel Safe in your Home?: Yes Lack of Transportation: No Lack of Food: Never True Current Housing: I Have Housing Concerned About Future Housing: No Difficulty Paying Gas/Electric Bills: No Difficulty Paying for Meds: No Currently Unemployed: No Education: High School Diploma/GED Difficulty w/ Childcare or Family Care: No Gender identity (if verbalized by the patient): Female Spiritual care concerns: No Comments At the time of my signature, I reviewed and agree with the nursing past medical, surgical, social, and family history. There is no relevant family history pertinent to the patient complaint. Exam Const: General: cooperative, no acute distress, alert and awake Orientation/consciousness: oriented to person, oriented to place and oriented to time HENMT: Head: normal to inspection Resp: Effort & Inspection: normal respiratory effort and able to speak in complete sentences Auscultation: clear to auscultation bilaterally, no crackles, no rales, no rhonchi and no wheezes Cardio: Palpation: normal PMI Rate: regular rate Rhythm: regular rhythm Heart sounds: S1 normal heart sound present and S2 normal heart sound present : General: Yes bladder normal to palpation and Yes no CVA tenderness Neuro: General: oriented to person, oriented to place and oriented to time Cranial nerves: Yes CN's II-XII intact bilaterally Psych: Appearance: grossly normal Thought process: Normal thought process present Insight: Good insight present (Psych) Judgement: Good judgement present (Psych) Course Course Level of Care: Express Care Visit Vital Signs Vital signs: Vital Signs Temperature 97.3 F L 09/24/24 14:15 Pulse Rate 72 09/24/24 14:15 Respiratory Rate 16 09/24/24 14:15 Blood Pressure 144/81 H 09/24/24 14:15 Pulse Oximetry 99 09/24/24 14:15 Oxygen Delivery Room Air 09/24/24 14:15 Temperature 97.3 F L 09/24/24 14:15 Pulse Rate 72 09/24/24 14:15 Respiratory Rate 16 09/24/24 14:15 Blood Pressure 144/81 H 09/24/24 14:15 Pulse Oximetry 99 09/24/24 14:15 Oxygen Delivery Room Air 09/24/24 14:15 Reviewed MDM - Female Genitourinary MDM Narrative Medical decision making narrative: Reassuring physical exam. UA consistent with UTI. Start Macrobid while waiting for culture. Patient advised follow-up primary care provider. Emergency department for new or worse symptoms. Discharge instructions reviewed with patient, as well as provided in writing per nursing staff. The instructions also include specific and strict return/GO TO THE ER as well as f/u information. All questions have been answered, and the patient deny any further questions with discharge and discharge plan. Some parts of this dictation were generated by voice recognition software and may contain typographical and/or grammatical inaccuracies. Differential Diagnosis Differential diagnosis: Likely urinary tract infection and dysmenorrhea Medical Records Attestation: I reviewed the patient's medical records. Lab Data Attestation: I reviewed the patient's lab results. Discharge Plan Discharge Clinical Impression: UTI (urinary tract infection) Qualifiers: Urinary tract infection type: site unspecified Hematuria presence: with hematuria Qualified Code(s): N39.0 - Urinary tract infection, site not specified Patient Disposition: Home, Self-Care Condition: Stable Instructions: Antibiotic Form, Urinary Tract Infection in Women (ED) Additional Instructions: Take medications as prescribed. Consume plenty of water. Emergency department for new or worse symptoms. Follow up with primary care provider Patient Language: [place] Island[place] Prescriptions: New nitrofurantoin monohyd/m-cryst [Macrobid] 100 mg capsule 100 mg PO Q12H 5 Days Qty: 10 0RF Rx Instructions: must administer with a meal/food No Action valacyclovir 500 mg tablet 500 mg PO BID gabapentin 100 mg capsule 100 mg PO DAILY atorvastatin 40 mg tablet 40 mg PO HS hydralazine 10 mg tablet 10 mg PO DAILY Stool Softener 50 mg Capsule 50 mg PO DAILY clopidogrel 75 mg tablet 75 mg PO DAILY aspirin 81 mg Tablet,Chewable 81 mg PO DAILY lisinopril 5 mg tablet 5 mg PO DAILY Follow-up/Referrals: Muna,ALETA Parra [Primary Care Provider] - 1 Week Stand Alone Forms: Work/School Release IP Time of Disposition: 14:38
[2024-09-25 10:05] LABS: EDUAAPPEAR Clear; EDUABILI Negative (Negative); EDUABLOOD 2+ (Negative); EDUACOLOR1 Yellow; EDUAGLUCOSE Negative (Negative); EDUAKETONE Negative (Negative); EDUALEUKO 1+ (Negative); EDUANITRATE Negative (Negative); EDUAPROTEIN 1+ (Negative)
== END 2024-09-24 14:47 | disposition home or self-care (01) ==
PROVIDERS: Emergency Provider Nurse Practitioner Family; PCP Physician Assistant
DX: N39.0 Urinary tract infection, site not specified (principal); B96.1 Klebsiella pneumoniae [K. pneumoniae] as the cause of diseases classified elsewhere; B96.20 Unspecified Escherichia coli [E. coli] as the cause of diseases classified elsewhere; I45.6 Pre-excitation syndrome; Z79.82 Long term (current) use of aspirin; Z87.891 Personal history of nicotine dependence
CPT/HCPCS: 81003; 87086; 87186; 99213; G0463

== ENCOUNTER 2025-10-12 16:22 | Emergency (ER) | payer OTHER, SELFPAY ==
--- NOTE | ~2025-10-12 | CT_ITS ---
EXAMINATION: CT brain wo con COMPARISON: None HISTORY: ANDRADE x 3 days, hx of stroke TECHNIQUE: Axial images were obtained through the brain without IV contrast. CT scan performed using dose optimization techniques including the following automated exposure control; adjustment of mA and/or kV; use of iterative reconstruction technique. Automatic exposure control was used to reduce radiation dose. Permanent radiation dose record is archived to PACS. FINDINGS: No acute infarct or parenchymal hemorrhage. No abnormal mass or mass effect. No midline shift. No extra-axial fluid collections. No hydrocephalus. . Mastoid air cells unremarkable. Sinuses and orbits unremarkable. No acute fracture. No significant facial or scalp soft tissue swelling evident. No radiopaque foreign body is seen. Impression: 1.No acute intracranial abnormality. Reviewed, dictated and finalized at location [facility] Impression: 1.No acute intracranial abnormality.
[2025-10-12 16:27] VITALS: BP 148/63; PULSE 92; RESP 16; TEMP 36.2; O2SAT 100
--- NOTE | 2025-10-12 17:25 | ED.HA ---
HPI - Headache General Chief Complaint: Headache Stated Complaint: headaches X3 days, h/o stroke Time Seen by Provider: 10/12/25 17:02 History of Present Illness HPI Narrative: Patient is a 39-year-old female who presents to the ER with a headache for the past 3 days. She reports the headache is on the right side of her face. Patient endorses temperature changes on her right side versus her left side, visual changes for the past 3 months, and nausea. She endorses a history of a stroke in February 2024, high blood pressure, WPW, and sciatic nerve pain. Patient denies any chest pain, back pain, or loss of continence. Related Data Home Medications ?Medication ?Instructions ?Recorded ?Confirmed ?Last Taken ?Type aspirin 81 mg chewable tablet 81 mg PO DAILY 07/04/24 09/24/24 Unknown History atorvastatin 40 mg tablet 40 mg PO HS 07/04/24 09/24/24 Unknown History clopidogrel 75 mg tablet 75 mg PO DAILY 07/04/24 09/24/24 Unknown History docusate sodium 50 mg capsule 50 mg PO DAILY 07/04/24 09/24/24 Unknown History (Stool Softener) hydralazine 10 mg tablet 10 mg PO DAILY 07/04/24 09/24/24 Unknown History lisinopril 5 mg tablet 5 mg PO DAILY 07/04/24 09/24/24 Unknown History gabapentin 100 mg capsule 100 mg PO DAILY 09/24/24 09/24/24 Unknown History valacyclovir 500 mg tablet 500 mg PO BID 09/24/24 09/24/24 Unknown History Allergies Allergy/AdvReac Type Severity Reaction Status Date / Time No Known Allergies Allergy Verified 10/12/25 16:24 Review of Systems Review of Systems: All systems reviewed & are unremarkable except as noted in HPI and below PMFSH Past Medical History Medical History History of 12/20/2002-D&C History of vaginal delivery x 3 HSV (herpes simplex virus) anogenital infection Kdcmy-Sozyydxgx-Cwtpl (WPW) syndrome Surgical History Surgical History [place] teeth removed 2015 History of radiofrequency ablation (RFA) procedure for cardiac arrhythmia 2018 Family History Family History Mother Heart disease Grandparent Asthma Other Hypertension Social History Social History Smoking packs per day: 0.25 Smoking cigarettes per day: 5.0 Smoking status: Former smoker Tobacco type: cigarettes Alcohol intake: never Alcohol use details: Not since Substance use: never Substance use type: does not use Lack of Transportation: No Lack of Food: Never True Current Housing: I Have Housing Concerned About Future Housing: No Difficulty Paying Gas/Electric Bills: No Difficulty Paying for Meds: No Currently Unemployed: No Education: High School Diploma/GED Difficulty w/ Childcare or Family Care: No Gender identity (if verbalized by the patient): Female Spiritual care concerns: No Exam Narrative: GENERAL: Well appearing, well-nourished, non-toxic, in no acute distress. HEAD: Normocephalic, atraumatic. NECK: Supple. No adenopathy, no masses. RESPIRATORY: Airway patent, respirations nonlabored. Clear to auscultation bilaterally, no rales, rhonchi, wheezing. CARDIOVASCULAR: Regular rate and rhythm without murmurs, rubs, or gallops. Peripheral pulses 2+ and equal bilaterally. ABDOMINAL: Soft, nontender, nondistended, no hepatosplenomegaly. Normoactive BS. MUSCULOSKELETAL: Moves all extremities. Strength/ROM intact without gross deformities. SKIN: Warm, dry, normal color. No rashes. NEURO: A&O X3. Speech clear. Cranial nerves II-XII intact. No ataxic movements. PSYCHIATRIC: Appropriate mood and affect. Normal interaction. Course Vital Signs Vital signs: Vital Signs Temperature 36.2 C L 10/12/25 16:27 Pulse Rate 92 10/12/25 16:27 Respiratory Rate 16 10/12/25 16:27 Blood Pressure 148/63 H 10/12/25 16:27 Pulse Oximetry 100 10/12/25 16:27 Temperature 36.2 C L 10/12/25 16:27 Pulse Rate 92 10/12/25 16:27 Respiratory Rate 16 10/12/25 16:27 Blood Pressure 148/63 H 10/12/25 16:27 Pulse Oximetry 100 10/12/25 16:27 MDM MDM Narrative Medical decision making narrative: Patient is a 39-year-old female who presents to the ER with a headache for the past 3 days. She reports the headache is on the right side of her face. Patient endorses temperature changes on her right side versus her left side, visual changes for the past 3 months, and nausea. She endorses a history of a stroke in February 2024, high blood pressure, WPW, and sciatic nerve pain. Patient denies any chest pain, back pain, or loss of continence. Labs Ordered: none necessary Imaging Ordered: CT brain Medications Ordered: 1 L normal saline IV bolus, Decadron 10 mg IV, Benadryl 25 mg IV, Reglan 10 mg IV, magnesium 1 g IV Results: Patient's CT brain scan indicates no acute abnormalities. Diagnosis: Migraine headache Patient Education/Shared MDM: Results of imaging shared with patient. she endorses improvement of symptoms following medication administration. Patient strongly advised to maintain hydration status upon discharge and follow-up with her PCP as soon as possible. She will not be discharged home with any new prescriptions. Strict return precautions provided. Patient verbalized understanding and is in agreement with plan. Vital signs stable at time of discharge. All questions answered. Differential Diagnosis Differential Diagnosis: CVA, migraine headache, hypertension Imaging Data Attestation: I personally reviewed and interpreted this imaging study as follows: Radiologist's impression: ITS Impressions Head CT 10/12/25 17:50 Impression: 1.No acute intracranial abnormality. Discharge Plan Discharge Clinical Impression: Headache, Migraine Patient Disposition: Home Condition: Stable Instructions: Antibiotic Form, Migraine Headache (ED) Additional Instructions: Please return to the ER with any worsening symptoms. Follow-up with primary care provider as soon as possible for further evaluation. Take all medications as prescribed, including regularly scheduled medications. You may take Tylenol as needed for pain control. Patient Language: Ukrainian Prescriptions: No Action valacyclovir 500 mg tablet 500 mg PO BID gabapentin 100 mg capsule 100 mg PO DAILY nitrofurantoin monohyd/m-cryst [Macrobid] 100 mg capsule 100 mg PO Q12H 5 Days Qty: 10 0RF Rx Instructions: must administer with a meal/food atorvastatin 40 mg tablet 40 mg PO HS hydralazine 10 mg tablet 10 mg PO DAILY Stool Softener 50 mg Capsule 50 mg PO DAILY clopidogrel 75 mg tablet 75 mg PO DAILY aspirin 81 mg Tablet,Chewable 81 mg PO DAILY lisinopril 5 mg tablet 5 mg PO DAILY Follow-up/Referrals: Muna,ALETA Parra [Primary Care Provider, Unknown] Stand Alone Forms: Work/School Release IP Time of Disposition: 18:55
[2025-10-12] MEDS: dexAMETHasone SOD PHOS INJ 10 MG/ML 1 ML VIAL IV PUSH (17:52)
[2025-10-12] MEDS: METOCLOPRAMIDE HCL INJ 10 MG/2 ML VIAL IV PUSH (17:52)
[2025-10-12] MEDS: MAGNESIUM SULF 1 GM/D5W 100 ML 1 GM/100 ML BAG IVPB (17:52)
[2025-10-12] MEDS: SODIUM CHLORIDE 0.9% IV 1,000 ML 999 ML IV CONT (17:52)
--- OUTSIDE RECORDS SUMMARY | 2025-10-12 18:02 | XMS_ITS | Encounter Summary ---
Author Organization [facility] Care Team Providers Care Drafter Directional Survey Name Role Phone Unknown, Notinfile Primary Care Provider Unavail able Unknown, Notinfile Primary Care Provider Unavail able Aida Toro Primary Care Provider [phone] Jimi Desai MD Unavailable [phone] Encounter Details Date Type Department Care Team (Latest Contact Info) Description 02/07/2018 Orders Only [facility] Provider, MD Coby [address] [place] [id number] Social History Tobacco Use Types Packs/Day Years Used Date Smoking Tobacco: Never Assessed Comments Unknown Sex and Gender Information Value Date Recorded Sex Assigned at Not on file Legal Sex Female 7:05 AM [employer] Gender Identity Not on file Sexual Orientation Not on file documented as of this encounter Plan of Treatment Not on file documented as of this encounter Procedures Procedure Name Priority Date/Time Associated Diagnosis Comments CARDIOLOGY REPORT 02/07/2018 12: 00 AM CDT documented in this encounter Results * CARDIOLOGY REPORT (02/07/2018 12:00 AM CDT) Anatomical Region Laterality Modality Other Narrative 02/07/2018 12:00 AM CDT Ordered by an unspecified provider. Historical Provider [facility] OMARI SIMON Final Result documented in this encounter Visit Diagnoses Not on filedocumented in this encounter Care Teams Drafter Directional Survey Relationship Specialty Start Date End Date Unknown, Notinfile PCP - General 11/13/18 11/13/18 Unknown, Notinfile PCP - General 11/14/18 06/28/19 Aida Toro PA [address] [place] [address] PCP - General Internal Medicine 06/29/19 Jimi Desai MD [address] [place] [address] [facility] Cardiovascular Disease 01/01/21 documented as of this encounter
--- OUTSIDE RECORDS SUMMARY | 2025-10-12 18:02 | XMS_ITS | Encounter Summary ---
Author Organization [facility] Healthcare Address [address] [place] [address] Care Team Providers Care Parachute Marker Name Role Phone Aida Toro Primary Care Provider [phone] Jimi Desai MD Unavailable [phone] Reason for Visit * Reason Onset Date Comments Test Results 08/07/2025 Encounter Details Date Type Department Care Team (Late st Contact Info) Description 08/07/2025 Results Follow-Up [facility] Family Medicine [address] [place] [address] Aida Toro PA [address] [place] [address] POCT lipid panel, Sureswab(R) Advanced Vaginitis Plus, TMA Cervical, Pap and HPV, reflex to HPV Genotypes, US Thyroid Social History Tobacco Use Types Packs/Day Years Used Date Smoking Tobacco: Former Cigarettes Q uit: 02/07/2024 Smokeless Tobacco: Never Alcohol Use Standard Drinks/Week Comments Never 0 (1 standard drink = 0.6 oz pur e alcohol) [facility] Utilities Answer Date Recorded In the past 12 months has e electric, gas, oil, or water company threatened to shut off services in your home? No 02/25/2024 Social Connection and Isolation Panel Answer Date Recorded In a typical week, how many times do you talk on the phone with family, friends, or neighbors? More than three times a week 02/25/2024 How often do you get togethe r with friends or relatives? Once a week 02/25/2024 How often do you attend chur ch or gnosticist services? Never 02/25/2024 Do you belong to any clubs o r organizations such as tenriism groups, unions, fraternal or athletic groups, or school groups? No 02/25/2024 How often do you attend meet ings of the clubs or organizations you belong to? Never 02/25/2024 Are you , , di vorced, , never , or living with a partner? Never 02/25/2024 Overall Financial Resource Strain (CARDIA) Answe r Date Recorded How hard is it for you to pa y for the very basics like food, housing, medical care, and heating? Somewhat hard 02/25/2024 PHQ-2 Answer Date Recorded PHQ-2 Total Score (If total score is 3 or more points, staff should administer the PHQ-9) 0 08/06/2025 Hunger Vital Sign Answer Date Recorded Within the past 12 months, y ou worried that your food would run out before you got the money to buy more. Sometimes true Within the past 12 months, t he food you bought just didn't last and you didn't have money to get more. Never true PRAPARE - Transportation Answer Date Re corded In the past 12 months, has l ack of transportation kept you from medical appointments or from getting medications? No 11/2023 In the past 12 months, has l ack of transportation kept you from meetings, work, or from getting things needed for daily living? No 03/08/2024 Housing Stability Vital Sign Answer Bridger e Recorded In the last 12 months, was t here a time when you were not able to pay the mortgage or rent on time? No 02/25/2024 In the last 12 months, how many places have you lived? 1 02/25/2024 In the last 12 months, was t here a time when you did not have a steady place to sleep or slept in a mcc (including now)? No 02/25/2024 PHQ-9 Answer Date Recorded Patient Health Questionnaire-9 Score 4 03/08/2024 AUDIT-C Answer Date Recorded Q1: How often do you have a drink containing alcohol? Never 08/06/2025 Q2: How many drinks containi ng alcohol do you have on a typical day when you are drinking? Patient does not drink Q3: How often do you have si x or more drinks on one occasion? Never 08/06/2025 Personal Safety Answer Date Recorded Have you ever been in or are you currently in a harmful physical or emotional relationship or is someone making you feel afraid or unsafe? 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 She is requesting it be sent izabella and she be called when it is sent to Pharmacy Does message need to be routed? Yes-Action Needed documented in this encounter Plan of Treatment Not on file documented as of this encounter Visit Diagnoses Not on filedocumented in this encounter Care Teams Parachute Marker Relationship Specialty Start Date End Date Aida Toro PA [address] [place] [address] PCP - General Internal Medicine 06/29/19 Jimi Desai MD [address] [place] [address] Spin Instructor Cardiovascular Disease 01/01/21 documented as of this encounter
--- OUTSIDE RECORDS SUMMARY | 2025-10-12 18:02 | XMS_ITS | Encounter Summary ---
Author Organization [facility] Healthcare Address [address] [place] [address] Care Team Providers Care Cottage Parent Name Role Phone Aida Toro Primary Care Provider [phone] Jimi Desai MD Unavailable [phone] Reason for Visit * Reason Onset Date Comments Symptom Based Call 09/26/2025 Encounter Details Date Type Department Care Team (Late st Contact Info) Description 09/26/2025 Telephone [facility] Family Medicine [address] [place] [address] Aida Toro PA [address] [place] [address] Symptom Based Call Social History Tobacco Use Types Packs/Day Years Used Date Smoking Tobacco: Former Cigarettes Q uit: 02/07/2024 Smokeless Tobacco: Never Alcohol Use Standard Drinks/Week Comments Never 0 (1 standard drink = 0.6 oz pur e alcohol) [facility] Utilities Answer Date Recorded In the past 12 months has [employer], gas, oil, or water company threatened to [...] often do you attend chur ch or adventist services? Never 02/25/2024 Do you belong to any clubs o r organizations such as synagogue groups, unions, fraternal or athletic groups, or [...] place to sleep or slept in a usp (including now)? 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 Pt would like to know if the Diflucan can be sent and if the symptoms continue, then she will come into office for an exam. Spoke to PCP who stated that was ok. Diflucan sent. Pt aware. RAL SCIENCE TEACHER * Telephone Encounter - Angelica Fountain LPN - 09/27/2025 2:05 PM GENERAL SCIENCE TEACHER Called and LVM for pt to return call. Please transfer through to office so staff can assist with scheduling. RAL SCIENCE TEACHER * Telephone Encounter - Aida Toro PA - 09/27/2025 1:58 PM GENERAL SCIENCE TEACHER Bacterial vaginosis usually is a malodorous, milky white discharge. It is treated with metronidazole. Yeast usually has white chunky discharge with itching/irritation. It is treated with Antifungal. My recommendation would be to have her come in for an appointment to determine what is going on as I can take a sample and look under the microscope to determine what needs treated instead of guessing over the phone since she has already been treated with Metronidazole and didn't have resolution. RAL SCIENCE TEACHER * Telephone Encounter - Lida Lucio - 09/26/2025 8:53 AM CST Symptom Based Call Chief Complaint(s): heavy discharge, vaginal odor Duration: since july What type of symptom(s) is the patient experiencing? Non-Emergent. Is this a new or reoccurring symptom(s)? Reoccurring What have you tried to help your symptom(s)? Was seen on 08/06 and given [email or web address] Why was appointment not scheduled? Patient seeking care without an appointment; appointment was offered by . Additional Comments: Patient wanting to know if this was supposed to treat both the yeast infectionand Bacterial vaginosis Does message need to be routed? Yes-Action Needed RAL SCIENCE TEACHER documented in this encounter Plan of Treatment Not on file documented as of this encounter Visit Diagnoses Not on filedocumented in this encounter Care Teams Cottage Parent Relationship Specialty Start Date End Date Aida Toro PA [address] [place] [address] PCP - General Internal Medicine 06/29/19 Jimi Desai MD [address] [place] [address] Discovery Guide Cardiovascular Disease 01/01/21 documented as of this encounter
--- OUTSIDE RECORDS SUMMARY | 2025-10-12 18:02 | XMS_ITS | Encounter Summary ---
Author Organization [facility] Facility Care Team Providers Care Acquisitions Editor Name Role Phone Unknown, Notinfile Primary Care Provider Unavail able Unknown, Notinfile Primary Care Provider Unavail able Aida Toro Primary Care Provider [phone] Jimi Desai MD Unavailable [phone] Encounter Details Date Type Department Care Team (Latest Contact Info) Description 03/08/2018 Orders Only [facility] Provider, MD Coby [address] [place] [id number] Social History Tobacco Use Types Packs/Day Years Used Date Smoking Tobacco: Never Assessed Comments Unknown Sex and Gender Information Value Date Recorded Sex Assigned at Not on file 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 Historical Provider [facility] SIMON Final Result documented in this encounter Visit Diagnoses Not on filedocumented in this encounter Care Teams Acquisitions Editor Relationship Specialty Start Date End Date Unknown, Notinfile PCP - General 11/13/18 11/13/18 Unknown, Notinfile PCP - General 11/14/18 06/28/19 Aida Toro PA [address] [place] [address] PCP - General Internal Medicine 06/29/19 Jimi Desai MD [address] [place] [address] Seamer Cardiovascular Disease 01/01/21 documented as of this encounter
--- OUTSIDE RECORDS SUMMARY | 2025-10-12 18:02 | XMS_ITS | Encounter Summary ---
Author Organization [facility] Facility Care Team Providers Care Batter Scaler Name Role Phone Unknown, Notinfile Primary Care Provider Unavail able Unknown, Notinfile Primary Care Provider Unavail able Aida Toro Primary Care Provider [phone] Jimi Desai MD Unavailable [phone] Encounter Details Date Type Department Care Team (Latest Contact Info) Description 06/22/2018 Orders Only [facility] ProviderCoby MD [address] [place] [address] Social History Tobacco Use Types Packs/Day Years Used Date Smoking Tobacco: Never Assessed Comments Unknown Sex and Gender Information Value Date Recorded Sex Assigned at Not on file 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 Historical Provider [facility] SIM[facility] Final Result * CARDIOLOGY REPORT (06/17/2018 12:00 AM CDT) Anatomical Region Laterality Modality Other Narrative 06/17/2018 12:00 AM CDT Ordered by an unspecified provider. us Historical Provider [facility] OMARI SIMON Final Result documented in this encounter Visit Diagnoses Not on filedocumented in this encounter Care Teams Batter Scaler Relationship Specialty Start Date End Date Unknown, Notinfile PCP - General 11/13/18 11/13/18 Unknown, Notinfile PCP - General 11/14/18 06/28/19 Aida Toro PA [address] [place], [place] [id number] PCP - General Internal Medicine 06/29/19 Jimi Desai MD [address] [place] [address] Sld Teacher Cardiovascular Disease 01/01/21 documented as of this encounter
--- OUTSIDE RECORDS SUMMARY | 2025-10-12 18:02 | XMS_ITS | Clinical Summary ---
Author Organization [facility] [facility] Address [address] [place] [address] Care Team Providers Care Slubber Tender Name Role Phone Aida Toro Primary Care Provider [phone] Jimi Desai MD Unavailable [phone] Allergies No known active allergies Medications polyethylene glycol (MIRALAX) 17 gram/dose bulk powderIndicatio ns:constipation Take 17 g by mouth daily 4 Active Additional Information Patient not taking.Reported on 08/06/2025 senna-docusate (PERICOLACE) 8.6-50 mg Take 2 tablets by mouth 2 (two) times a day 4 Active Additional Information Patient not taking.Reported on 08/06/2025 metoprolol XL (TOPROL-XL) 25 mg extended release tablet TAKE 1/2 TABLET(12.5 MG) BY MOUTH DAILY 45 tablet 3 5 Active Additional Information Patient not taking.Reported on 08/06/2025 aspirin 325 mg tablet Take 1 tablet (325 mg total) by mouth daily Active DULoxetine DR (CYMBALTA) 60 mg capsule Take 1 capsule (60 mg total) by mouth daily 90 capsule 2 5 Active rosuvastatin (CRESTOR) 40 mg tablet Take 1 tablet (40 mg total) by mouth daily 90 tablet 2 5 Active meclizine (ANTIVERT) 12.5 mg tabletIndicatio ns:Cerebrovascu lar accident (CVA) due to occlusion of right vertebral artery (HCC) Take 1 tablet (12.5 mg total) by mouth 3 (three) times a day as needed for dizziness 30 tablet 1 5 04/06/20 26 Active lisinopriL (PRINIVIL,ZESTR IL) 5 mg tablet TAKE 1 TABLET(5 MG) BY MOUTH DAILY 90 tablet 1 5 Active metroNIDAZOLE (METROGEL) 0.75 % (37.5mg/5 gram) vaginal gelIndications: Bacterial Vaginosis Apply to vagina nightly for 5 nights. 70 g 5 Active hydrALAZINE (APRESOLINE) 10 mg tablet TAKE 1 TABLET BY MOUTH TWICE DAILY 180 tablet 1 5 Active fluconazole (DIFLUCAN) 150 mg tabletIndicatio ns:Yeast infection Take one tab now. Repeat in 7 days if symptoms persist. 2 tablet 5 Active Active Problems Problem Noted Date Diagnosed Date Iron deficiency 07/18/2025 Low mean corpuscular volume (MCV) 07/12/2025 Mixed hyperlipidemia 01/28/2025 Assessment & Plan (03/11/2025 5:13 PM CDT): Encouraged patient to follow low fat/low chol diet like the Mediterranean diet. Increase good fats in the diet. Increase exercise. Monitor labs as needed. Continue statin Assessment & Plan (01/28/2025 10:45 PM CDT): Encouraged patient to follow low fat/low chol diet like the Mediterranean diet. Increase good fats in the diet. Increase exercise. Monitor labs as needed. Continue statin BMI 28.0-28.9,adult 12/04/2024 Assessment & Plan (08/06/2025 8:17 AM CDT): Weight/BMI is in healthy range. Continue healthy lifestyle to maintain. Assessment & Plan (03/01/2025 7:06 AM CDT): Weight/BMI is in healthy range. Continue healthy lifestyle to maintain. Assessment & Plan (01/15/2025 7:28 AM CDT): Weight/BMI is in healthy range. Continue healthy lifestyle to maintain. Assessment & Plan (12/04/2024 7:12 AM CONVERTING OPERATOR): Weight/BMI is in healthy range. Continue healthy lifestyle to maintain. Abnormal CBC 10/23/2024 Assessment & Plan (12/04/2024 8:59 AM CONVERTING OPERATOR): Patient has abnormal CBC. Showing microcytic hypochromic changes per the peripheral smear. Patient recalls she may have been told she had a thalassemia but never completed the workup. Will refer to [facility] hematology for further evaluations and recommendations Assessment & Plan (10/23/2024 6:08 AM CONVERTING OPERATOR): Patient has abnormal blood cell count. She states she remembers being told she had a beta thalassemia when she was but never really remembers any follow-up. Advised usually this can just be monitor but will go ahead and check some labs. Nystagmus 06/01/2024 Assessment & Plan (06/01/2024 4:26 PM CDT): Pt with recent posterior circulation stroke with c/o oscillopsia while inpatient, suggestive of nystagmus. No formal ophtho eval while inpatient to confirm. The patient reports her symptoms have since resolved without residual. Acuity is excellent today. There is no hemifield defect. There is no nystagmus in primary gaze. There is a slight torsional nystagmus in far left an right gazes, but the patient is asymptomatic for this. While this could be the result of a brainstem infarct, this could also be gaze evoked. Regardless, she is having her stroke risk factors managed by her PCP/neuro team. She has normal afferent function today and no restrictions in activity from an ophthalmic standpoint. She can return to driving. Reviewed s/s stroke and advised emergency evaluation with any onset. F/u here prn. History of tobacco abuse 03/27/2024 Overview (05/23/2024): Quit 02/2024 Assessment & Plan (05/23/2024 9:52 AM CDT): Patient quit smoking in February of 2024 Assessment & Plan (03/27/2024 11:26 PM CDT): Encouraged smoking cessation. Discussed 3 minutes. Reviewed options for assistance with cessation. Reviewed prison sequela associated with smoking. Pt declines assistance at this time but may contact the office at anytime for further help as they desire. Discussed consideration Wellbutrin. If she decides she wants to use may call at any time. No history of seizures. 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 She continues to have occasional dizziness, left-sided numbness, burning/pins and needles pain, and increased sensitivity to cold temperatures on her left side. The patient also has noticed increased anxiety since her stroke and was started on medications per her primary care provider. She remains compliant with her antiplatelet and statin therapy. She is followed by Cardiology and Neurosurgery outpatient. Plan: Continue aspirin 325 mg and rosuvastatin 40 mg daily. Trial meclizine as needed for dizziness. Continue follow up with Cardiology and Neurosurgery. Encouraged management of anxiety/depression with the patient's primary care provider. We discussed decreasing caffeine intake. Follow up in 1 year. Assessment & Plan (03/11/2025 5:13 PM CDT): Continue per Neurology. History of stroke. She is on statin as well as good blood pressure control and and aspirin. Assessment & Plan (01/28/2025 10:46 PM CDT): History of stroke. Continue per Dr. Armstrong Cardiology, nurse practitioner Otoniel with neurology and ALETA Benitez with Neuro Surg. Continue tight control of blood pressure. Continue statin, Plavix Assessment & Plan (12/04/2024 9:00 AM CONVERTING OPERATOR): Patient has a history of ischemic vertebral basilar artery cerebellar stroke. She is on Plavix 75 daily, atorvastatin 40. She is on lisinopril 5 mg and hydralazine 10 mg b.i.d.. Patient is to continue with her specialists including Cardiology Dr. García, neurology nurse practitioner Otoniel and neurosurgeon ALETA Davis. Will await recommendations from Dr. Braun regarding the Holter monitor if she would have any stroke symptoms she is too quickly go to the ER for immediate evaluation. She verbalizes understanding Assessment & Plan (10/23/2024 6:08 AM CONVERTING OPERATOR): History of stroke in February 26, 2024. Had similar symptoms in June but no symptoms since. Continue the aspirin and the Plavix along with her statin and tight blood pressure control. Continue per Cardiology and Neurology Assessment & Plan (09/15/2024 4:27 PM CONVERTING OPERATOR): Yoan was hospitalized at [facility] in February of 2024 following a right vertebral artery dissection resulting in a right lateral medulla PICA infarct causing left-sided numbness/weakness, balance difficulty, and vision changes. The patient reports some burning/pins and needles pain as well as increased sensitivity to cold temperatures on her left upper extremity that has become more bothersome since her stroke. She presented to an outside ED in June due to some worsening left sided weakness that ultimately resolved. The patient reports that imaging completed was negative, records not available for review. She remains compliant with her antiplatelet and statin therapy. She is followed by Cardiology. She reports some worsening anxiety and depression since her stroke. Plan: Continue Plavix 75 mg daily. Continue atorvastatin 40 mg nightly. Requested records from the patient's outside ED visit to review. Consider follow up vascular imaging if not completed in June. Trial gabapentin 100 mg nightly for neuropathic pain. Continue follow up with Cardiology. Referral to neurosurgery/neurovascular. Discussed BEFAST and the importance of presenting to the ED at the onset of any stroke-like symptoms. Advised the patient to discuss anxiety/depression management with her PCP. Follow up in 6 months. Assessment & Plan (08/13/2024 8:10 PM CDT): Patient had a cerebellar stroke from a dissecting vertebral artery in February of 2024. She continues to remain on the aspirin 81 Plavix 75 statin and tight blood pressure control. Continue to follow with her mobile application tester and neurologist with these additional symptoms. Assessment & Plan (07/02/2024 12:06 AM CDT): History of ischemic stroke. Continue with prevention by taking her Plavix and her statin. Continue to monitor blood pressure closely keep track her readings at home and if it continues to be above 140/80 we will need to adjust the medications. She has no limitations. She is able to return to work and return to driving. Letter written to this effect. Assessment & Plan (05/23/2024 9:54 AM CDT): Continue per Neurology and Ophthalmology. 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 She completed inpatient rehab and is currently in outpatient PT and OT. She endorses compliance with her antiplatelet and statin therapy. She denies any loss of overall functionality, and has been working from home part-time without any difficulties. She has quit smoking since her stroke. Plan: Continue Plavix and atorvastatin daily. Vascular surgery for vertebral artery dissection recommendations/management. Ophthalmology evaluation for return to driving recommendations. Continue outpatient physical therapy and occupational therapy. Okay to return to full-time work schedule from home. Follow up in 6 months. Assessment & Plan (03/27/2024 11:29 PM CDT): History of vertebral dissection resulting in vertebrobasilar artery cerebellar stroke. Continue with blood pressure control, statin, Plavix and aspirin. Has a follow-up scheduled with Neurology. Continue intense therapy 2 days a week through [facility]. Patient is requesting return to work status. This will be provided. She states this will be a sedentary job that she is able to perform home. Recommend no driving and no operation of heavy equipment due to her balance issues. This will need to be reassessed by Neurology and Physical therapy before obtaining this released. Patient verbalizes understanding. Primary hypertension 01/21/2023 Assessment & Plan (03/11/2025 5:14 PM CDT): Bp is stable/in acceptable range for any co-morbidities. Encouraged to limit sodium intake and exercise for weight control. Continue current regimen. Blood pressure today was stable Assessment & Plan (01/28/2025 10:45 PM CDT): Bp is stable/in acceptable range for any co-morbidities. Encouraged to limit sodium intake and exercise for weight control. Continue lisinopril 5 and hydralazine 10 Assessment & Plan (12/04/2024 8:58 AM CONVERTING OPERATOR): Encouraged to limit sodium intake and exercise for weight control. BP elevated today. Will have her monitor and recheck again at her next visit. Take medications as prescribed. Assessment & Plan (10/23/2024 6:07 AM CONVERTING OPERATOR): Bp is stable/in acceptable range for any co-morbidities. Encouraged to limit sodium intake and exercise for weight control. Continue lisinopril 5 and hydralazine Assessment & Plan (08/13/2024 8:09 PM CDT): Bp is stable/in acceptable range for any co-morbidities. Encouraged to limit sodium intake and exercise for weight control. Continue lisinopril 5 and hydralazine 10 b.i.d. Assessment & Plan (07/02/2024 12:07 AM CDT): Insert hypertension. Continue with lisinopril 5 and hydralazine 10 mg b.i.d.. Assessment & Plan (05/23/2024 9:52 AM CDT): Bp is stable/in acceptable range for any co-morbidities. Encouraged to limit sodium intake and exercise for weight control. Continue lisinopril 5 and hydralazine 10. Pressures are great Assessment & Plan (03/27/2024 11:30 PM CDT): Bp is stable/in acceptable range for any co-morbidities. Encouraged to limit sodium intake and exercise for weight control. Continue lisinopril 5 and hydralazine 10 mg b.i.d.. She was instructed for systolic is less than 110 to skip the dose. Will continue with this plan and monitor closely. If this continues happening may need to adjust the dose to have continued consistent treatment. Assessment & Plan (03/10/2024 11:04 AM CDT): BP now controlled on lisinopril and hydralazine Assessment & Plan (07/09/2023 9:49 PM CDT): Bp is stable/in acceptable range for any co-morbidities. Encouraged to limit sodium intake and exercise for weight control. Continue diltiazem XR 120 Assessment & Plan (01/21/2023 11:32 AM CDT): Post , now off enalapril. SBP elevated, will resume Diltiazem for Palpitations. Check basic lab work, Lipids, CBC, BMP, HGBa1 for primary prevention. HSV infection 02/02/2022 Overview (02/02/2022): - On valtrex suppression Plan: - SSE on admission to L&D to ensure no lesions. - If lesions are present it is an indication for section. History of cardiac radiofrequency ablation (RFA) 01/30/2022 Palpitations 07/20/2021 Assessment & Plan (12/04/2024 8:48 AM CONVERTING OPERATOR): Continue per Dr. Dickens. Currently has heart monitor on. She states during the 3 days she has experienced some of the symptoms that she is worried about. Will await Dr. Armstrong recommendation based on the results. Assessment & Plan (05/23/2024 9:52 AM CDT): Continue per Cardiology. Follows with Dr. Gonzalez Assessment & Plan (01/21/2023 11:31 AM CDT): Reoccurrence of paplpiations, associated with very atypical chest pressure. 7 day holter. EKG today with no acute changes. Resume diltiazem. EP follow Up, not planning any further pregnancies. Assessment & Plan (07/20/2021 3:34 PM CDT): This is a significant, separately identifiable problem that was evaluated and managed on the same day as the wellness exam Patient is experiencing more palpitations. This was prior to finding out she was . History of partially ablated to non inducibilty per Dr. Boswell last note. Will refer her to Cardio at [facility] [place] as she would like to deliver at [place]. If she has CP, increased sxs, she is to consider going to the ER. 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 Desai 06/22/2018 -Saw at 01/13/22 - started on diltiazem Summary of Recommendations: Patient's meternal risk is described below due to her cardia arrhythmia history. She has approximately 20% risk of cardiac event during . Continue Diltiazem 120 mg daily to control palpitations. Further recommendations below. Maternal Risk Assessment: - CARPREG II: Score: 2 Estimated Risk: 15% - SHUKRI: Score: 3 Estimated Risk: 20% - WHO Class: II OVERALL ESTIMATED RISK OF MAJOR CARDIAC EVENT: 20% Most likely adverse cardiac events include: recurrent arrhythmias Risk: The risk of congenital heart defects is no increased risk. A echocardiogram IS NOT recommended during the second trimester due to maternal cardiac condition. Antepartum Management: - Clinical follow up by our office is recommended as follows: 1 year - Serial cardiac imaging IS NOT required. - Medical therapy will include: Diltiazem 120 mg daily Delivery Planning: - Mode of delivery: No cardiac contraindication to vaginal delivery at this time - Mode of anesthesia: No contraindication to regional anesthesia - SBE prophylaxis is NOT indicated per 2020 ACC/AHA valve guidelines. - Telemetry monitoring is recommended. - Fluids: Usual management - Filtered lines ARE NOT required - Any other specific precautions: Recommend checking BMP and Mg upon hospital admission and repleting electrolytes to keep K >4 and Mg >2. If she develops sustained SVT, safe to perform synchronized DCCV at 50J. If shock unsuccessful at converting to sinus, can increase by 50J to max of 200J. Safe to adminster shocks while . Post- Management: - Volume overload IS NOT anticipated 24-72 hours post-delivery. - Post- monitoring: Telemetry 24-48hrs - Other post- recommendations: none Assessment & Plan (03/27/2024 11:24 PM CDT): Continue per Cardiology/EP She is currently on and monitor. Will follow up pending their instructions based on the results. Assessment & Plan (03/10/2024 11:03 AM CDT): Ms. Sevilla has known evidence of pre-excitation on ECG and developed symptoms consistent with WPW syndrome in 2017 She underwent EP study by Dr. Jimi Desai in 06/2018 at [facility], reportedly with induction of both ORT and and typical AVNRT at the time Slow pathway modification and limited ablation of a (presumably, right-sided) anteroseptal pathway was performed at the time without reinducibility of further arrhythmias but persistence of pre-excitation on surface ECG -Due to recurrence of palpitations, Ms. Sevilla wore an ambulatory monitor tech in 01/2023 that revealed evidence of 2 extremely brief runs of SVT, most consistent with AT Symptoms improved with diltiazem initially, but stopped taking diltiazem because she felt it was no longer working Clinical ECGs show sinus rhythm with pre-excitation and LBBB, suggestive of a right lateral pathway (~8 o'clock on the tricuspid anulus) Her previous monitor did not suggest recurrent ORT or AVNRT but that a repeat EP study or initiation of antiarrhythmic drug therapy could be considered if she felt that her symptoms were significant -Will obtain 30 day MCT Assessment & Plan (07/09/2023 9:50 PM CDT): Qgusp-Itwhixonv-Dxvxz 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 Desai 06/22/2018 -Saw at 01/13/22 - started on diltiazem Patient was instructed if she ever has syncopal presyncopal type symptoms or palpitations and chest pain she is to immediately go to the ER. She verbalizes understanding Assessment & Plan (01/21/2023 11:25 AM CDT): Sp AVNRT ablation but failure AVRT accessory pathway due to risk of AV block in 2018. EP follow up when able. Assessment & Plan (07/20/2021 3:28 PM CDT): Refer to cardio - See palpitations Assessment & Plan (01/01/2021 9:25 AM CONVERTING OPERATOR): Partially ablated to non inducibility. ER P of pathway long and no further RF done. No evidence of AV RT at this time. Would not recommend additional treatment. Stopped propranolol in the past without any worsening of symptoms Assessment & Plan (10/10/2019 1:52 PM CONVERTING OPERATOR): Monitor unremarkable. Unlikely patient having AV RT. Would not pursue additional workup for treatment at this time. Okay to wean off propranolol. Thyroid panel okay Assessment & Plan (08/09/2019 10:24 AM CDT): Episodes not that suggestive. Would not recommend directly EP study. Will have her wear 1 week Holter. Has also lost weight although not trying. Will check labs including thyroid panel Assessment & Plan (11/15/2018 6:42 AM CONVERTING OPERATOR): Patient has history of WPW follows with Dr. Desai at OSH. Patient denies recent WPW like symptoms and she is not on any oral antiarrhythmic. - H&P and EP study report faxed from OSH (no EKG or echo report included) - telemetry monitoring - EP recommend avoiding caffeine products, maintaining adequate hydration (~80fl oz daily), and recording single-lead ECG smart-watch with recurrent episode - start propranolol 40mg BID - EP to follow up as outpatient in 4-6 weeks Chronic tension-type headache, not intractable 0 11/13/2018 Assessment & Plan (11/13/2018 1:34 PM CONVERTING OPERATOR): Patient endorses daily headaches that had tension like, no alarming symptoms (focal neurologic deficits, morning N/V, negative CT head in the past) - continue tramadol as needed for headache/pain - continue to monitor symptoms Grief 09/14/2018 Anxiety 08/08/2018 Assessment & Plan (03/11/2025 5:14 PM CDT): Anxiety is improving with the Cymbalta. Still has some breakthrough symptoms at time and was very confused about her results. She felt like the whole right side of the brain was occluded with blood flow and this was extremely nursing to her. We talked through the results today and encouraged her to follow up with her neurologist for more questions. Let us increase the Cymbalta to 60 mg. May take 2 of the 30 mg tablets until they are exhausted then will return to 160 mg tablet. Has hydralazine to use as needed. Continue to monitor closely and follow up in a few months to reassess or sooner for any other problems or concerns Assessment & Plan (01/28/2025 10:47 PM CDT): Patient continues to have anxiety symptoms. These seem to be primarily related to having a stroke and worrying that any little symptom could allow that to happen again. She took the Cymbalta for 4 days and then stopped it because she was not sure if it helped and thought she was feeling bad on it. Reviewed medications and how long it takes for the scripts for medications to work. Reviewed the risks benefits alternatives and side effects. She is willing to give it another try and will commit to a month's worth of treatment and follow up in the office to reassess at that time Also encouraged counseling as this can be helpful as she continues to work through chronic medical concerns Assessment & Plan (12/04/2024 8:58 AM CONVERTING OPERATOR): Patient has noticed increased anxiety since the CVA. She is willing to consider medication. Discussed safest 1 with cardiac/rhythm history. Together decided on the Cymbalta 30 mg. Reviewed risks benefits alternatives side effects and proper use. Will have her follow-up 6 weeks to reassess or sooner problems/concerns Assessment & Plan (08/13/2024 8:08 PM CDT): Patient has felt more anxious since having the stroke. Discuss medications as this point she just wants to monitor. Encouraged counseling as as-needed Abnormal EKG 03/07/2018 Overview (02/02/2022): EKG done on 02/07/2018 showed a sinus rhythm with a short [place] interval with the lateral ST-T changes. Possible WPW syndrome. Former smoker 03/07/2018 Overview (02/02/2022): Quit smoking in October 2017. Used to smoke one pack cigarettes a day for 10 years Assessment & Plan (08/13/2024 8:08 PM CDT): Patient quit smoking. Encouraged her to continue with cessation Pollen allergies 02/07/2018 Resolved Problems Problem Noted Date Diagnosed Date Resolved Date Positive depression screening 03/01/2025 03/11/2025 BMI 24.0-24.9, adult 10/09/2024 025 Assessment & Plan (10/09/2024 4:39 PM CONVERTING OPERATOR): Weight/BMI is in healthy range. Continue healthy lifestyle to maintain. Fatigue 08/13/2024 12/04/2024 Assessment & Plan (08/13/2024 8:09 PM CDT): Probably multifactorial. Check labs and followup to re-evaluate Diabetes mellitus screening 08/13/2024 10/23/2024 Assessment & Plan (08/13/2024 8:09 PM CDT): Check labs Lipid screening 08/13/2024 10/23/2024 Assessment & Plan (08/13/2024 8:09 PM CDT): Check labs Breast cancer screening by mammogram 08/13/2024 12/04/2024 Assessment & Plan (08/13/2024 8:09 PM CDT): Mammogram order provided BMI 25.0-25.9,adult 08/02/2024 10/09/20 Assessment & Plan (08/02/2024 7:15 AM CDT): Weight/BMI is in healthy range. Continue healthy lifestyle to maintain. 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 S/p TNK. Now on ASA, Plavix, Atorvastatin Acute nonintractable headache 07/09/2023 03/27/2024 Assessment & Plan (07/09/2023 9:53 PM CDT): This is a significant, separately identifiable problem that was evaluated and managed on the same day as the wellness exam Patient has had an atypical presentation of headache 3 days ago. She describes it as a lightening bolt lasted about 3 days. Symptoms have almost completely resolved today. No active neurologic signs but patient states she feels a little off still. Recommend CT the head with out contrast stat and follow-up with those results today CT: essentially normal. Let pt know her CT head was negative -- NO bleed or masses or stroke. Recommend to monitor ANDRADE. Can try an excedrin Migraine. Keep hydrated/increase fluids I would like to check a few labs to rule out other causes for the ANDRADE. CMP, CBC, CRP, SedRate, A1c and TSH -- which lab would she like to go to If she would have another ANDRADE like she has described, stroke like sxs recommend to ER> care following vaginal delivery 02/21/2022 07/09/2023 Overview (02/23/2022): # ID: Afebrile. No signs/symptoms of infection. #COVID-19: asymptomatic # Heme: EBL 250 mL. No symptoms acute blood loss anemia. # Gestational hypertension - Blood pressures well controlled on no agents. Asymptomatic, denies ANDRADE/RUQ pain/vision changes. CBC/CMP wnl, UPC wnl. Enrolled in home BP monitoring. #WPW: Follows with cardiology, continue tele for 24-48h and diltiazem 120mg nightly for palpitations. Tele reviewed with no acute events. Labs WNL yesterday, Mg repleted PO. # GI/: Tolerating PO. Voiding spontaneously but reports leakage prior to making it to bathroom. Return of sensation and no further issue, will still continue with PFPT referral on DC. # Pain: Controlled with above regimen. # Post DVT prophylaxis: The patient has the following MAJOR risk factors none and the following MINOR risk factors none. SCDs ordered for VTE prophylaxis. # MOC: Progestin-only pills # MOF: # COVID Vaccination Status: Previously received # Disposition: Follow up task not sent. Desires discharge home today. See WPW plan as above. Encounter for induction of labor 02/20/2022 07/09/2023 Overview (02/20/2022): 1. rrIOL: Admit to L&D. Consents signed and placed in chart. Send CBC/T&S. Induction of labor with misoprostol. 2. FWB: Continuous monitoring. tracing category I 3. ID: HIV negative. GBS negative. Membrane Status: intact. 4. Indications for UDS: none. Verbal consent obtained for UDS: Not indicated 5. MOF: Plans to breastfeed. 6. MOC: Plans to use nexplanon vs IUD for contraception. Consented for post placental IUD in case; will readdress during labor course. 7. Pain management: Plans for epidural at recommendation of Dr. Diego. 8. Post DVT prophylaxis: The patient has the following MAJOR risk factors cardiac disease and the following MINOR risk factors age >/= 35. enoxaparin 40 mg daily will be ordered for VTE prophylaxis . 9. COVID Vaccine Status: Not assessed 10. 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 s/p ablation of but failed ablation of AVRT accessory pathway due to risk of AV block. Evaluated by Dr. Diego. Current regimen: Diltiazem 120mg daily. No contraindication to vaginal delivery or regional anesthesia. Plan for tele monitoring during labor and for 24-4 pp. Check BMP and Mg on adm. Replete electrolytes K > 4 and Mg >2. If she develops sustained SVT, safe to perform synchronized DCCV at 50J. If shock unsuccessful at converting to sinus, can increase by 50J to max of 200J. Safe to adminster shocks while . 11. AMA: LR NIPT 12. 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 Negative BLE on admission AMA (advanced maternal age) multigravida 35+, unspecified trimester 01/30/2022 07/09/2023 Overview (02/09/2022): Continue weekly NSTs as previously scheduled Supervision of high-risk pre gnancy, unspecified trimester 01/30/2022 07/09/2023 Overview (02/19/2022): [x] Full M Care; [] Red Team [x] Blue Team Referring Provider: Liliana Ludwig [phone] [x] Dating Criteria: LMP 05/23/21 with PAUL 02/27/22 [x] Labs: Rh [B+], Ab [negative], Rubella [immune], HIV [non-reactive], HepBSAg [non-reactive], RPR [non-reactive], Hep C [not done], Varicella [not done], GC/CT [negative/negative] [x] Genetic Screening: NIPT negative, Fragile X: negative, CF negative, [x] CBC/Hgb 10.2/31.5/plt 254 [] UCx: not done [x] Pap: 08/02/21: NILM [x] LD ASA (if indicated) starting at 12 weeks: 2nd Tri Labs: [x] Anatomy ultrasound: wnl [x] CBC/1hr gtt at 24-28wks: 11/20/21: 9.1/29.0/plt 321 [x] Flu Shot (Jul-Oct): [x] Tdap (27-36wks): 01/2022 @ [facility] [x] COVID Vaccine: obtained, considering booster 3rd Tri Labs: [x] CBC/HIV/RPR/T&S: 9.8/29.3/plt 245, HIV[non-reactive], RPR[non-reactive] [x] GBS: Negative on 02/02/22 [x] COVID testing: Pt was Covid + on 11/06/21, preadmission testing deferred as < 120 days [x] testing: weekly Counseling [x] MOD: IOL scheduled for 02/20/22 at 0830, letter given to pt [x] Place of delivery: [facility] [x] MOC: counseled 02/09/22, considering IUD vs. Nexplanon [x] Method of feeding: Breast [] Coverage Specialist: undecided on 02/16/22 [x] PP Depression Discussed: 24 weeks gestation of 11/13/2021 07/09/2023 07/20/2021 07/09/2023 Assessment & Plan (07/20/2021 3:35 PM CDT): This is a significant, separately identifiable problem that was evaluated and managed on the same day as the wellness exam Start PN vitamins. Rx sent. Reviewed diet, exercise, weight, safe meds/meds to avoid. She plans to followup with Dr. Shea. Call if she has any bleeding or concerns prior to being seen. Amenorrhea 07/20/2021 07/09/2023 Assessment & Plan (07/20/2021 3:31 PM CDT): Positive UPT in the office. Multigravida of advanced mat ernal age in first trimester 07/20/2021 01/30/2022 Assessment & Plan (07/20/2021 3:33 PM CDT): Patient is AMA. Reviewed some of the screening options that available with dx AMA> She will discuss further with her RELEASE ENGINEER. Annual physical exam 07/20/2021 025 Assessment & Plan (08/13/2024 8:08 PM CDT): Encouraged healthy lifestyle, good nutrition and exercise. Encouraged Calcium and Vitamin D and weight bearing exercise for bone health. Reviewed immunizations Reviewed age appropirate screenings. Assessment & Plan (07/09/2023 9:50 PM CDT): Encouraged healthy lifestyle, good nutrition and exercise. Encouraged Calcium and Vitamin D and weight bearing exercise for bone health. Reviewed immunizations Reviewed age appropirate screenings. BMI 24.0-24.9, adult 07/10/2021 024 Assessment & Plan (07/02/2024 12:08 AM CDT): Weight/BMI is in healthy range. Continue healthy lifestyle to maintain. Assessment & Plan (05/23/2024 9:53 AM CDT): Weight/BMI is in healthy range. Continue healthy lifestyle to maintain. Assessment & Plan (03/27/2024 11:25 PM CDT): Weight/BMI is in healthy range. Continue healthy lifestyle to maintain. Assessment & Plan (07/09/2023 9:50 PM CDT): Weight/BMI is in healthy range. Continue healthy lifestyle to maintain. Assessment & Plan (07/10/2021 2:53 PM CDT): Weight/BMI is in healthy range. Continue healthy lifestyle to maintain. History of contraception 11/13/201810/2021 Assessment & Plan (11/13/2018 2:06 PM CONVERTING OPERATOR): Patient LMP was 10/22/2018, hCG in the ED was negative, and patient takes Aviane at home. - continue home aviane Other chest pain 11/13/2018 07/20/2021 Assessment & Plan (01/01/2021 9:25 AM CONVERTING OPERATOR): Discussed at length with patient noncardiac. Assessment & Plan (10/10/2019 1:52 PM CONVERTING OPERATOR): Noncardiac. Assessment & Plan (08/09/2019 10:24 AM CDT): Muscle skeletal. Perhaps also component of GERD Assessment & Plan (11/15/2018 6:43 AM CONVERTING OPERATOR): patient presented with chest pain in setting of paroxysmal tachycardia. Her initial EKG showed WPW physiology and intraventricular conduction delay (QRS 140). 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 s/p ablation by Dr. Desai Drug abuse 03/07/2018 08/08/2025 Overview (02/02/2022): Using marijuana in the past she quit smoking marijuana in 2012 Encounters Date Type Department Care Team Description 09/27/[address] [place] [phone] Aida Toro PA 09/26/[address] [place] [phone] Aida Toro PA Symptom Based Call 08/21/2025 7:10 AM CDT - 08/21/2025 11:59 PM CDT Hospital Encounter [facility] Ultrasound [facility] [place] [address] Thyromegaly Discharge Disposition: Discharge to home or self care 08/10/[address] [place] [phone] Aida Toro PA 08/07/2025 Results Follow-Up [address] [place] [phone] Swinigan, Aida R., PA POCT lipid panel, Sureswab(R) Advanced Vaginitis Plus, TMA Cervical, Pap and HPV, reflex to HPV Genotypes, US Thyroid 08/06/2025 7:30 AM CDT Office Visit [facility] [address] [facility] [address] [place] [phone] Aida Toro PA Cervical cancer screening (Primary Dx); Mixed hyperlipidemia; Chronic right shoulder pain; Breast cancer screening by mammogram; BMI 28.0-28.9,adult; Thyromegaly; Screening examination for STD (sexually transmitted disease) 07/18/2025 10:45 AM CDT Lab [facility] [address] [place] [phone] Low mean corpuscular volume (MCV); Iron deficiency 07/18/2025 9:30 AM CDT Office Visit [facility] Hematology [address] [place] [address] [address] [place] [phone] Sybil Moore NP Abnormal CBC (Primary Dx); Low mean corpuscular volume (MCV); Iron deficiency 07/18/2025 Telephone [facility] Oncology [address] [place] [address] [address] [place] [address] Ne Mujica RN from Last 3 Months Immunizations Immunization Administration Dates Next Due DTP 06/19/1992, 6,07/03/1985,04/24/1985,0 02/13/1985 Hep A, Pediatric 03/14/2002 Hep B Vaccine 02/22/2015 Hep B, Adolescent or Pediatric 07/25/1999,1998 Influenza, Unspecified 08/02/2024(Deferr ed: Patient Refused),08/02/2024(Deferred: Patient Refused),11/08/2023(Deferred: Patient Refused),11/08/2023(Deferred: Patient Refused),11/08/2020(Deferred: Patient Refused) MMR 06/19/1992,05/10/1986 OPV 06/19/1992, 0,02/25/1988,04/24/1985,0 02/13/1985 Tdap 01/24/2022 Varicella 06/25/1999 Surgical History Surgery Date Site/Laterality Comments CARDIAC ELECTROPHYSIOLOGY STUDY AND ABLATION Medical History Medical History Date Comments WPW (Fokzl-Ubowlrzmt-Tsdkq syndrome) Hypertension 02/17/24 Stroke (HCC) 02/17/24 Family History Medical History Relation Name Comments No Known Problems Father Breast cancer Mother's Sister Glaucoma Neg Hx Macular degeneration Neg Hx Relation Name Status Comments Father Mother Mother's Sister Social History Tobacco Use Types Packs/Day Years Used Date Smoking Tobacco: Former Cigarettes Q uit: 02/07/2024 Smokeless Tobacco: Never Tobacco Cessation:Counseling Given: Not Answered Alcohol Use Standard Drinks/Week Comments Never 0 (1 standard drink = 0.6 oz pur e alcohol) [facility] Utilities Answer Date Recorded In the [...] often do you attend chur ch or congregation services? Never 02/25/2024 Do you belong to any clubs o r organizations such as catholic groups, unions, fraternal or athletic groups, or [...] place to sleep or slept in a residential (including now)? No 02/25/2024 PHQ-9 Answer Date [...] on file Legal Sex Female 7:05 AM CONVERTING OPERATOR Gender Identity Not on file Sexual Orientation Not on file Obstetrics History Para Term AB IAB SAB Ectopic Multiple Livin g Live Births 4 3 3 1 0 3 2 Date Outcome GA Total Labor Labor/2nd/3rd Weight Sex Type Anes PTL Amita A1 A5 Name Clin 003 AB 004 Term Vag-S pont N Livin g 008 Term 3.033 kg (6 lb 11 oz) M Vag-S pont 022 Term 39w 1d 18h 57m 18h 27m/0h 25m/0h 05m 2.98 kg (6 lb 9.1 oz) F Vag-S pont Epidur al N Livin g 8 9 WHITE ,GIRL YOAN PorLorelei mack MD Delivery Location:[facility] Main C ampus ([facility] 58LD) Last Filed Vital Signs Vital Sign Reading Time Taken Comments Blood Pressure 120/82 08/06/2025 7:47 AM CDT Pulse 90 08/06/2025 7:47 AM CDT Temperature 36.9 C (98.5 F) 08/06/2025 7:47 AM CDT Respiratory Rate 18 07/18/2025 10:00 AM CDT Oxygen Saturation 99% 08/06/2025 7:47 AM CDT Inhaled Oxygen Concentration - - Weight 69.9 kg (154 lb) 08/06/2025 7:47 AM CDT Height 157.5 cm (5' 2) 08/06/2025 7:47 AM CDT Body Mass Index 28.17 08/06/2025 7:47 AM CDT Plan of Treatment Health Maintenance Due Date Last Done Comments Hepatitis C Screening 1984 Varicella Vaccines (2 of 2 - 13+ 2-dose series) 07/23/1999 06/25/1999 Pneumococcal vaccine <65 (1 of 2 - PCV) 2003 HPV Vaccines (1 - 3-dose SCD M series) 2011 Covid-19 Vaccine (4 - 2024-2 6 season) 2025 04/02/2022, 08/21/2021, 07/31/2021 Influenza Vaccine (#1) 2025 Breast Cancer Screening-Mammogram 09/22/2025 024 Depression Screening 08/06/2026 08/06/2025, 03/01/2025, 01/15/2025, Additional history exists Regular Well Visit/Exam 18-64 08/06/2026, 08/02/2024, 07/09/2023, Additional history exists Cervical Cancer Screening 08/06/2030 08/06/2025 DTaP/Tdap/Td Vaccine (7 - Td or Tdap) 01/25/2032 01/24/2022, 06/19/1992, 07/03/1986, Additional history exists Hepatitis B Screening Completed 02/22/2015 , 07/25/1999, 06/25/1999 Procedures Procedure Name Priority Date/Time Associated Diagnosis Comments US THYROID Schedule Routine, Read Routine (OP Routine) 08/21/2025 7:52 AM CDT Thyromegaly HM LIPID PANEL Routine 08/10/2025 11:34 AM CDT SURESWAB(R) ADVANCED VAGINITIS PLUS, TMA Routine 08/06/2025 8:40 AM CDT Screening examination for STD (sexually transmitted disease) POCT LIPID PANEL Routine 08/06/2025 8:08 AM CDT Mixed hyperlipidemia PAP AND HPV, REFLEX TO HPV GENOTYPES Routine 08/06/2025 8:01 AM CDT Cervical cancer screening DIFFERENTIAL AUTO Routine 07/18/2025 10:49 AM CDT Low mean corpuscular volume (MCV) Iron deficiency CBC WITH AUTO DIFFERENTIAL Routine 07/18/2025 10:49 AM CDT Low mean corpuscular volume (MCV) Iron deficiency RETICULOCYTES Routine 07/18/2025 10:49 AM CDT Low mean corpuscular volume (MCV) Iron deficiency IRON PROFILE W/ IBC Routine 07/18/2025 10:49 AM CDT Low mean corpuscular volume (MCV) Iron deficiency FERRITIN Routine 07/18/2025 10:49 AM CDT Low mean corpuscular volume (MCV) Iron deficiency HEMOGLOBIN ANALYSIS BY ELECTROPHORESIS Routine 07/18/2025 10:49 AM CDT Low mean corpuscular volume (MCV) Iron deficiency VITAMIN B12 Routine 07/18/2025 10:49 AM CDT Low mean corpuscular volume (MCV) Iron deficiency FOLATE Routine 07/18/2025 10:49 AM CDT Low mean corpuscular volume (MCV) Iron deficiency SCREENING MAMMOGRAM BILATERAL W ANT Schedule Routine, Read Routine (OP Routine) 09/22/2024 8:17 AM CONVERTING OPERATOR Breast cancer screening by mammogram from Last 3 Months or Most Recently Relevant to Health Maintenance Results * US Thyroid (08/21/2025 7:52 AM CDT) Anatomical Region Laterality Modality Head and Neck N/A Ultrasound 08/21/2025 10:0 8 AM CDT Narrative 08/21/2025 10:13 AM CDT EXAM DESCRIPTION: US THYROID REASON FOR STUDY: Reported thyromegaly on recent physical evaluation superimposed on 25 pound weight gain over the past 3 months. Additional complaint of chronic cough for 1 year. No provided past medical, to include cancer, history. No thyroid surgeries. TECHNIQUE: Sonographic evaluation of the thyroid performed utilizing grayscale and color Doppler imaging techniques. Images saved to PACS. COMPARISON: Relevant portions of CTA head/neck 02/17/2024. FINDINGS: RIGHT: The right thyroid lobe measures 5.0 x 1.3 x 1.9 cm (CC by AP by TV) . The right thyroid lobe is normal in echotexture. LEFT: The left thyroid lobe measures 4.9 x 1.3 x 1.7 cm. The left thyroid lobe is normal in echotexture. ISTHMUS: The isthmus measures 0.2 cm AP. The isthmus is normal in echotexture. VASCULARITY: Normal. OTHER: No other significant finding. IMPRESSION: Unremarkable sonographic evaluation of the thyroid. ACR TI-RADS Risk Category: Not applicable. REFERENCE: According to the ACR Thyroid Imaging, Reporting and Data System (TI-RADS): White Paper of the ACR TI-RADS Committee Mar, 2017 recommendations regarding the management of thyroid nodules are as follows: 1. TI-RADS 1: Risk of malignancy <2%, no FNA or follow up required. 2. TI-RADS 2: Risk of malignancy <2%, no FNA or follow up required. 3. TI-RADS 3: Risk of malignancy 2%-5%. Nodules 1.5 cm or greater follow up at 1, 3 and 5 years recommended, for nodules 2.5 cm or greater FNA recommended. 4. TI-RADS 4: Risk of malignancy 5%-20% Nodules 1.0 cm or greater follow up at 1, 2, 3 and 5 years recommended, for nodules 1.5 cm or greater FNA recommended 5. TI-RADS 5: Risk of malignancy >20%. Nodules 0.5 cm or greater annual follow up for 5 years recommended, for nodules 1.0 cm or greater FNA recommended. The ACT TI-RADS committee recommends targeting no more than two nodules for FNA. If three or more nodules meet criteria for FNA, the two with the most suspicious appearance based on ACR TI-RADS points should be sampled. THIS IS AN ELECTRONICALLY VERIFIED FINAL REPORT 08/21/2025 10:13 AM - Electronically signed by Americo Boykin M.D. CHRISTIAN: CHRISTIAN Report ID: [id number] Reading Location: [place] [address] Procedure Note Americo Boykin MD - 08/21/2025 EXAM DESCRIPTION: US THYROID REASON FOR STUDY: Reported thyromegaly on recent physical evaluation superimposed on 25 pound weight gain over the past 3 months. Additional complaint of chronic cough for 1 year. No provided past medical, toinclude cancer, history. No thyroid surgeries. TECHNIQUE: Sonographic evaluation of the thyroid performed utilizinggrayscale and color Doppler imaging techniques. Images saved to PACS. COMPARISON: Relevant portions of CTA head/neck 02/17/2024. FINDINGS: RIGHT: The right thyroid lobe measures 5.0 x 1.3 x 1.9 cm (CCby AP by TV) . The right thyroid lobe is normal in echotexture. LEFT: The left thyroid lobe measures 4.9 x 1.3 x 1.7 cm. The leftthyroid lobe is normal in echotexture. ISTHMUS: The isthmus measures 0.2 cm AP. The isthmus is normal in echotexture. VASCULARITY: Normal. OTHER: No other significant finding. IMPRESSION: Unremarkable sonographic evaluation of the thyroid. ACR TI-RADS Risk Category: Not applicable. REFERENCE: According to the ACR Thyroid Imaging, Reporting and Data System (TI-RADS): White Paper of the ACR TI-RADS Committee Mar, 2017recommendations regarding the management of thyroid nodules are as follows: 1. TI-RADS 1: Risk of malignancy <2%, no FNA or follow up required. 2. TI-RADS 2: Risk of malignancy <2%, no FNA or follow up required. 3. TI-RADS 3: Risk of malignancy 2%-5%. Nodules 1.5 cm or greater followup at 1, 3 and 5 years recommended, for nodules 2.5 cm or greater FNArecommended. 4. TI-RADS 4: Risk of malignancy 5%-20% Nodules 1.0 cm or greater followup at 1, 2, 3 and 5 years recommended, for nodules 1.5 cm or greater FNA recommended 5. TI-RADS 5: Risk of malignancy >20%. Nodules 0.5 cm or greater annual follow up for 5 years recommended, for nodules 1.0 cm or greater FNA recommended. The ACT TI-RADS committee recommends targeting no more than two nodulesfor FNA. If three or more nodules meet criteria for FNA, the two with themost suspicious appearance based on ACR TI-RADS points should be sampled. THIS IS AN ELECTRONICALLY VERIFIED FINAL REPORT 08/21/2025 10:13 AM - Electronically signed by Americo Boykin M.D. CHRISTIAN: CHRISTIAN Report ID: [id number] Reading Location: [place] [address] [facility] US PROCEDURES Final Re sult * HM LIPID PANEL (08/10/2025 11:34 AM CDT) Historical Provider MD HEALTH MAINTENANCE Final Result * (ABNORMAL) Sureswab(R) Advanced Vaginitis Plus, TMA Cervical (08/06/2025 8:40 AM CDT) SureSwab(R) ADV Bacterial vaginosis (BV), TMA POSITIVE(A) NEGATIVE [facility] Maricel species DETECTED(A) NOT DETECTED [facility] Maricel glabrata NOT DETECTED NOT DETECTED [facility] Comment: Maricel species C. albicans, C. tropicalis, C. parapsilosis, and/or C. dubliniensis can be detected, but not differentiated, in the Maricel spp. result. Trichomonas vaginalis (TV), TMA NOT DETECTED NOT DETECTED [facility] C. trachomatis RNA NOT DETECTED NOT DETECTED [facility] N. gonorrhoeae RNA NOT DETECTED NOT DETECTED [facility] Comment: For additional information, please refer to https://education.[employer]/faq/BKH428 (This link is being provided for information/ educational purposes only.) Cervical 08/06/2025 8:40 AM CDT 08/07/2025 4:06 AM CDT [facility] MICROBIOLOGY - GENERAL ORDERABLES Final Result [facility] [address] [place] [address] * POCT lipid panel (08/06/2025 8:08 AM CDT) Cholesterol, POC 100 <200 MG/DL HDL, POC 61 >=40 mg/dL Triglycerides, POC 116 <=149 mg/dL Capillary blood 08/06/2025 8 :08 AM CDT [facility] POINT OF CARE TEST ORDERAB LES Final Result * Pap and HPV, reflex to HPV Genotypes (08/06/2025 8:01 AM CDT) CLINICAL INFORMATION: [facility] Comment:CERVICAL CANCER SCRE ENING LMP [facility] Comment:N/A Previous Pap [facility] Comment:NONE GIVEN Prev. Bx [facility] Comment:NONE GIVEN SOURCE: [facility] Comment:Cervix, Endocervix Pap, specimen adequacy [facility] Comment: Satisfactory for evaluation. Endocervical/transformation zone component present. Age and/or menstrual status not provided HPV interp [facility] Comment: Cytology Results: Negative for intraepithelial lesion or malignancy. COMMENTS [facility] Comment: This Pap test has been evaluated with the ThinPrep(R) Imaging [facility] Comment: YQ, CT(ASCP) CT Screening Location: [place] [address] Administration LUIS Fuller [address] CLIA: [id number] Slide preparation performed at: [facility], [facility] [place], [address] CLIA: [id number] Comment [facility] Comment: EXPLANATORY NOTE: The Pap is a screening test for cervical cancer. It is not a diagnostic test and is subject to false negative and false positive results. It is most reliable when a satisfactory sample, regularly obtained, is submitted with relevant clinical findings and history, and when the Pap result is evaluated along with historic and current clinical information. Human papillomavirus DNA, High Risk E6/E7 Not Detected NOT DETECTED [facility] Comment: Not Detected High Risk HPV types (16,18,31,33,35,39,45,51,52, 56,58,59,66,68) were not detected. Other HPV types which cause anogenital lesions may be present. The significance of the other types of HPV in malignant processes has not been established. Methodology: Real Time PCR Thin prep-Endocervica l 08/06/2025 8:01 AM CDT 08/07/2025 4:33 PM CDT [facility] CYTOLOGY ORDERABLES [facility] Result [facility] [address] [address] [place]audio [id number] [facility] [address] [place] [address] * Differential, auto (07/18/2025 10:49 AM CDT) Neutrophil abs 2.15 1.50 - 6.50 K/cumm Comment:Testing performed by : [facility], [address] [place] [address]., [address] Imm gran abs 0.00 0.00 - 0.10 K/cumm CELESTINE DOWNEY Comment:Testing performed by : [address], [place]., [address] Lymphocyte abs 1.94 0.80 - 3.30 K/cumm CELESTINE Comment:Testing performed by : [address], [place]., [address] Monocyte abs 0.39 0.20 - 0.80 K/cumm CELESTINE Comment:Testing performed by : [address], [place]., [address] Eosinophil abs 0.08 0.00 - 0.50 K/cumm [facility] Comment:Testing performed by : [address], [place]., [address] Basophil abs 0.02 0.00 - 0.10 K/cumm [facility] Comment:Testing performed by : [address] [address] Neutrophil pct 47.0 % [facility] Comment: Interpretive Data Percent cell count reference ranges are not reported, since discordance with absolute values may lead to misinterpretation of CBC data. Current Interpretive Data was last revised on 2018. Testing performed by: [address] [address] Imm gran pct 0.0 % [facility] Comment: Interpretive Data Percent cell count reference ranges are not reported, since discordance with absolute values may lead to misinterpretation of CBC data. Current Interpretive Data was last revised on 2018. Testing performed by: [address] [address] Lymphocyte pct 42.4 % [facility] Comment: Interpretive Data Percent cell count reference ranges are not reported, since discordance with absolute values may lead to misinterpretation of CBC data. Current Interpretive Data was last revised on 2018. Testing performed by: [address] [address] Monocyte pct 8.5 % [facility] Comment: Interpretive Data Percent cell count reference ranges are not reported, since discordance with absolute values may lead to misinterpretation of CBC data. Current Interpretive Data was last revised on 2018. Testing performed by: [address] [address] Eosinophil pct 1.7 % CELE[facility]INE Comment: Interpretive Data Percent cell count reference ranges are not reported, since discordance with absolute values may lead to misinterpretation of CBC data. Current Interpretive Data was last revised on 2018. Testing performed by: [address] [address] Basophil pct 0.4 % CELESTINE Comment: Interpretive Data Percent cell count reference ranges are not reported, since discordance with absolute values may lead to misinterpretation of CBC data. Current Interpretive Data was last revised on 2018. Testing performed by: [address] [address] Blood 07/18/2025 10:4 9 AM CDT 07/18/2025 10:54 AM CDT Sybil Moore NP LAB BLOOD ORDERABLES Final Result Performing Organization Address [facility]/ZIP Co de Phone Number [place] [address] [facility] [employer] [place] [address] * Iron profile w/ IBC (07/18/2025 10:49 AM CDT) Iron 65 35 - 145 mcg/dL Comment:Testing performed by : [address] [address] TIBC 331 250 - 400 mcg/dL CELESTINE Comment:Testing performed by : [address] [address] Transferrin saturation 20 20 - 50 % CELESTINE Comment:Testing performed by : [address] [address] Blood 07/18/2025 10:4 9 AM CDT 07/18/2025 11:39 AM CDT Sybil Moore NP LAB BLOOD ORDERABLES Final Result Performing Organization Address City/[facility]/ZIP Co de Phone Number [facility] [address] [facility] [place] [address] * (ABNORMAL) CBC with auto differential (07/18/2025 10:49 AM CDT) [facility] WBC 4.58 3.80 - 9.90 K/cumm Comment:Testing performed by : [address] [address] Hgb 11.2(L) 11.9 - 15.5 g/dL CELESTINE Comment:Testing performed by : [address], [address] Hct 35.0(L) 35.6 - 45.5 % CELESTINE Comment:Testing performed by : [address], [address] Plt 281 150 - 400 K/cumm CELESTINE Comment:Testing performed by : [address], [address] MPV 9.5 9.1 - 12.3 fL CELESTINE Comment:Testing performed by : [address], [address] RBC 4.81 3.90 - 5.20 M/cumm CELESTINE Comment:Testing performed by : [address] [address] MCV 72.8(L) 81.3 - 96.4 fL CELESTINE Comment:Testing performed by : [address] [address] MCH 23.3(L) 27.1 - 33.3 pg CELESTINE Comment:Testing performed by : [address], [address] MCHC 32.0(L) 32.3 - 35.7 g/dL CELESTINE Comment:Testing performed by : [address], [address] RDW CV 14.7 11.1 - 14.9 % CELESTINE Comment:Testing performed by : [address], [address] RDW SD 38.1 35.7 - 48.1 fL CELESTINE Comment:Testing performed by : [address], [address] NRBC abs 0.00 0.00 - 0.01 K/cumm CELESTINE DOWNEY Comment:Testing performed by : [facility], [address] [place] [address]., [address] ANC Prelim 2.15 1.50 - 6.50 K/cumm CELESTINE DOWNEY Comment: Interpretive Data The rapid ANC is a preliminary automated count and may vary from the final ANC (Neut Abs) reported in the WBC differential that follows. Current interpretive data was last revised 2025. Testing performed by: [facility], [address] [place] [address]., [address] Blood 07/18/2025 10:4 9 AM CDT 07/18/2025 10:54 AM CDT Sybil Moore INTERNET MARKETING MANAGER LAB BLOOD ORDERABLES Final Result CELESTINE DOWNEY [address] [facility] Department [place] [address] * (ABNORMAL) Hemoglobin analysis by electrophoresis (07/18/2025 10:49 AM CDT) RBC 4.77 3.90 - 5.20 M/cumm Comment:Testing performed by : [facility], [address] [place]., [address] Hgb 11.5(L) 11.9 - 15.5 g/dL CELESTINE DOWNEY Comment:Testing performed by : [facility], [address] [place]., [address] MCV 74.2(L) 81.3 - 96.4 fL CELESTINE DOWNEY Comment:Testing performed by : [facility], [address] [place]., [address] Rdw 15.1(H) 11.1 - 14.9 % CELESTINE DOWNEY Comment:Testing performed by : [facility], [address] [place]., [address] Hgb electrophoresis , interp Please see comment CELESTINE DOWNEY Comment: Pattern consistent with beta thalassemia trait Reviewed and signed by Zen Akbar MD 07/19/2025 Testing performed by: [facility], [address] [place]., [address] Hgb A 93.2(L) 96.0 - 98.5 % CELESTINE DOWNEY Comment:Testing performed by : [facility], [address] [place]., [address] Hgb A2 5.2(H) 1.5 - 3.2 % CELESTINE DOWNEY Comment:Testing performed by : [facility], [address] [facility], [address] Hgb F 1.6(H) 0.0 - 0.9 % CELESTINE DOWNEY Comment:Testing performed by : [facility], [address] [facility], [address] Blood 07/18/2025 10:4 9 AM CDT 07/18/2025 2:18 PM CDT Sybil Moore INTERNET MARKETING MANAGER LAB BLOOD ORDERABLES Final Result CELESTINE [facility] Department [place] [address] * (ABNORMAL) Reticulocyte Count (07/18/2025 10:49 AM CDT) Retics, absolute 66 20 - 87 K/cumm Comment:Testing performed by : [address] [address] Retics 1.4 0.4 - 2.9 % CELESTINE DOWNEY Comment:Testing performed by : [address] [address] Reticulocyte Hgb 26.6(L) 30.5 - 38.0 pg CELESTINE Comment:Testing performed by : [address] [address] Blood 07/18/2025 10:4 9 AM CDT 07/18/2025 10:54 AM CDT Sbyil Moore INTERNET MARKETING MANAGER LAB BLOOD ORDERABLES Final Result CELESTINE [address] [address] * Folate (07/18/2025 10:49 AM CDT) Folic acid 5.7 >=5.0 ng/mL Comment:Testing performed by : [address] [address] Blood 07/18/2025 10:4 9 AM CDT 07/18/2025 11:39 AM CDT Sybil Moore INTERNET MARKETING MANAGER LAB BLOOD ORDERABLES Final Result Performing Organization Address [facility] Co de Phone Number CELESTINE [address] [place] [address] * Ferritin (07/18/2025 10:49 AM CDT) Pathologist [facility] Ferritin 41 13 - 150 ng/mL Comment:Testing performed by : [address] [address] Blood 07/18/2025 10:4 9 AM CDT 07/18/2025 11:39 AM CDT Sybil Moore INTERNET MARKETING MANAGER LAB BLOOD ORDERABLES Final Result Performing Organization Address City/[facility] Co de Phone Number CELESTINE [address] [address] * Vitamin B12 (07/18/2025 10:49 AM CDT) Vitamin B12 941 230 - 1,250 pg/mL Comment:Testing performed by : [address] [address] Blood 07/18/2025 10:4 9 AM CDT 07/18/2025 11:39 AM CDT Sybil Moore INTERNET MARKETING MANAGER LAB BLOOD ORDERABLES Final Result CELESTINE [facility] [address] [facility] Department [place] [address] * Screening Mammogram Bilateral W Ant (09/22/2024 8:17 AM CONVERTING OPERATOR) Anatomical Region Laterality Modality Breast Bilateral Mammography Impressions 09/22/2024 8:45 AM CONVERTING OPERATOR BI-RADS ATLAS category (overall): 1 - Negative There is no mammographic evidence of malignancy. A 1 year screening mammogram is recommended. The patient has been or will be contacted. We recommend annual screening mammography for women at average risk of breast cancer beginning at age 40, based on guidelines of the [employer] (ACR Practice Parameter for the Performance of Screening and Diagnostic Mammography) and [employer]. For women with and elevated risk of breast cancer, please refer to the ACR Practice Parameter for specific screening recommendations. The patient will be entered into a reminder system with a target due date of 1 year for her next screening exam. Narrative 09/22/2024 8:45 AM CONVERTING OPERATOR Screening Mammogram Bilateral W Ant: 09/22/24 The study was acquired using full field digital technology and interpreted from soft copy. 2D digital mammographic views, as well as 3D digital tomosynthesis were performed in the CC and MLO projections. CLINICAL: Breast cancer screening by mammogram. No relevant medical history has been documented for this patient. History of breast cancer in Mother's Sister. No comparisons were made when reading this study. BREAST TISSUE: The breasts are extremely dense, which lowers the sensitivity of mammography. FINDINGS: No suspicious masses, suspicious calcifications, or other suspicious findings are seen within either breast. There has been no suspicious change. Aida [facility] IMG MAMMO PROCEDURES Final Result from Last 3 Months or Most Recently Relevant to Health Maintenance Insurance AETNA [facility] CHOICE PLUS [facility] HMO/PPO Address: [address] [address] [place] [address] Advance Directives For more information, please contact: [phone] * Full Code (Latest Code Status on File) Date Activated Date Inactivated Comments 02/22/2024 3:51 PM 03/08/2024 4:54 PM * Full Code Date Activated Date Inactivated Comments 02/17/2024 8:48 PM 02/22/2024 3:49 PM * Full Code Date Activated Date Inactivated Comments 02/17/2024 3:19 PM 02/17/2024 8:48 PM * Full Code Date Activated Date Inactivated Comments 02/21/2022 6:11 AM 02/23/2022 5:18 PM * Full Code Date Activated Date Inactivated Comments 02/20/2022 8:42 AM 02/21/2022 6:11 AM Full CPR in case of cardiopulmonary arrest Care Teams Slubber Tender Relationship Specialty Start Date End Date Aida Toro PA [address] [place] [address] PCP - General Internal Medicine 06/29/19 Jimi Desai MD [address] [place] [address] Network Analyst Cardiovascular Disease 01/01/21
--- OUTSIDE RECORDS SUMMARY | 2025-10-12 18:02 | XMS_ITS | Encounter Summary ---
Author Organization [facility] Facility Care Team Providers Care Water Sponger Name Role Phone Unknown, Notinfile Primary Care Provider Unavail able Unknown, Notinfile Primary Care Provider Unavail able Aida Toro Primary Care Provider [phone] Jimi Desai MD Unavailable [phone] Encounter Details Date Type Department Care Team (Latest Contact Info) Description 03/07/2018 Orders Only [facility] CLINCONV Provider, MD Coby [address] [place] [address] Social History Tobacco Use Types Packs/Day Years Used Date Smoking Tobacco: Never Assessed Comments Unknown Sex and Gender Information Value Date Recorded Sex Assigned at Not on file 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
--- OUTSIDE RECORDS SUMMARY | 2025-10-12 18:02 | XMS_ITS | Encounter Summary ---
Author Organization [facility] Facility Care Team Providers Care Sheet Metal Welder Name Role Phone Unknown, Notinfile Primary Care Provider Unavail able Unknown, Notinfile Primary Care Provider Unavail able Aida Toro Primary Care Provider [phone] Jimi Desai MD Unavailable [phone] Encounter Details Date Type Department Care Team (Latest Contact Info) Description 04/03/2018 Orders Only [facility] CLINCONV Provider, MD Coby [address] [place] [address] Social History Tobacco Use Types Packs/Day Years Used Date Smoking Tobacco: Never Assessed Comments Unknown Sex and Gender Information Value Date Recorded Sex Assigned at Not on file Legal Sex Female 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 Historical Provider [facility] OMARI SIMON Final Result documented in this encounter Visit Diagnoses Not on filedocumented in this encounter Care Teams Sheet Metal Welder Relationship Specialty Start Date End Date Unknown, Notinfile PCP - General 11/13/18 11/13/18 Unknown, Notinfile PCP - General 11/14/18 06/28/19 Aida Toro PA [address] [place] [address] PCP - General Internal Medicine 06/29/19 Jimi Desai MD [address] [place] [address] Cafeteria Supervisor Cardiovascular Disease 01/01/21 documented as of this encounter
--- OUTSIDE RECORDS SUMMARY | 2025-10-12 18:03 | XMS_ITS | Clinical Summary ---
Author Organization [facility] Address [address] [place] [address] Care Team Providers Care Electrical Power Engineer Name Role Phone Suleman Pretty MD Primary Care Provider [phone] Allergies No known active allergies Medications No known medications Family History Medical History Relation Comments Tuberculosis Father Heart Disease Mother Relation Status Comments Father Mother Social History Tobacco Use Types Packs/Day Years Used Date Smoking Tobacco: Every Day Cigarettes Smokeless Tobacco: Never Alcohol Use Standard Drinks/Week Comments Yes 0 (1 standard drink = 0.6 oz pur e alcohol) socially Comments No Sex and Gender Information Value Date Recorded Sex Assigned at Not on file Legal Sex Female 8:04 AM CONFERENCE CENTER MANAGER Gender Identity Not on file Sexual Orientation Not on file Last Filed Vital Signs Vital Sign Reading Time Taken Comments Blood Pressure 134/77 09/23/2020 8:16 AM CONFERENCE CENTER MANAGER Pulse 79 09/23/2020 8:16 AM CONFERENCE CENTER MANAGER Temperature 36.8 C (98.2 F) 09/23/2020 8:16 AM CONFERENCE CENTER MANAGER Respiratory Rate 16 09/23/2020 8:16 AM CONFERENCE CENTER MANAGER Oxygen Saturation 100% 09/23/2020 8:16 AM CONFERENCE CENTER MANAGER Inhaled Oxygen Concentration - - Weight 54.4 kg (120 lb) 09/23/2020 8:16 AM CONFERENCE CENTER MANAGER Height 157.5 cm (5' 2) 09/23/2020 8:16 AM CONFERENCE CENTER MANAGER Body Mass Index 21.95 09/23/2020 8:16 AM CONFERENCE CENTER MANAGER Plan of Treatment Health Maintenance Due Date Last Done Comments Cervical Cancer Screening Pap Smear (Age 30 to 64) Every 3 Years 1984 Annual Physical 1987 Hepatitis C 2002 DTaP, Tdap and Td Vaccines (2 - Tdap) 2003 06/19/1992, 07/03/1986, 07/03/1985, Additional history exists Hepatitis B Vaccines (1 of 3 - 19+ 3-dose series) 2003 Pneumococcal Vaccine: Pediatrics (0 to 5 Years) and At-Risk Patients (6 to 49 Years) (1 of 2 - PCV) 2003 HPV Vaccines (1 - 3-dose SCDM series) 2011 Cervical Cancer Screening Pap with HPV Testing (Age 30 to 64) Every 5 Years 2014 Cervical Cancer Screening with HPV 2014 Mammogram Screening 2024 COVID-19 Vaccine ( - season) 2025 Influenza Adult (#1) 2025 Hepatitis A Vaccines Aged Out No long er eligible based on patient's age to complete this topic Meningococcal B Vaccine Aged Out No l onger eligible based on patient's age to complete this topic Meningococcal Vaccine Aged Out No ryder giovanni eligible based on patient's age to complete this topic RSV Immunizations Under 20 Months Aged Out No longer eligible based on patient's age to complete this topic Insurance AETNA Care Teams Electrical Power Engineer Relationship Specialty Start Date End Date Suleman Pretty MD [address] [place] [address] PCP - General FAMILY PRACTICE 09/23/20
--- OUTSIDE RECORDS SUMMARY | 2025-10-12 18:03 | XMS_ITS | Clinical Summary ---
Author Organization [facility] Address [address] [place] [phone] Phone Care Team Providers Care Marine Habitat Resource Specialist Name Role Phone Aida Toro PA-C Primary Care Provider [phone] Social History Tobacco Use Types Packs/Day Years Used Date Smoking Tobacco: Never Assessed Comments Unknown Sex and Gender Information Value Date Recorded Sex Assigned at Not on file Legal Sex Female 7:47 AM DRY SANDER Gender Identity Not on file Sexual Orientation Not on file Plan of Treatment Health Maintenance Due Date Last Done Comments DTAP/TDAP/TD VACCINES (1 - Tdap) 2003 HEPATITIS B VACCINES (1 of 3 - 19+ 3-dose series) 12/09 HPV/Cotest (21-29) 2005 HPV VACCINES (1 - 3-dose SCDM series) 2011 CERVICAL CANCER SCREENING 2014 HPV/Cotest (30-65) 2014 PAP SMEAR 2014 BREAST CANCER SCREENING 2024 INFLUENZA VACCINE (#1) 2025 Insurance AETNA [facility] OUT OF NETWORK Care Teams Marine Habitat Resource Specialist Relationship Specialty Start Date End Date Aida Toro PA-C [address] [facility] [address] [place] [address] PCP - General Physician Furniture Associate 10/23/21
--- OUTSIDE RECORDS SUMMARY | 2025-10-12 18:03 | XMS_ITS | Clinical Summary ---
Author Organization [facility] Address [address] [place] [address] Care Team Providers Care Production Cloth Cutter Name Role Phone Unavailable Primary Care Provider Unavailabl e Social History Tobacco Use Types Packs/Day Years Used Date Smoking Tobacco: Never Assessed Comments Unknown Sex and Gender Information Value Date Recorded Sex Assigned at Not on file Legal Sex Female 12:31 PM CATEGORY CONSULTANT Gender Identity Not on file Sexual Orientation Not on file Plan of Treatment Health Maintenance Due Date Last Done Comments Hepatitis C Virus (HCV) Screening 1984 TdaP Immunization 1984 Pap Smear 2005 Human Papillomavirus (HPV) Immunization (1 - 3-dose SCDM series) 2011 Cervical Cancer Screening (CCS) 2014 HPV/Cotest 2014 Influenza Immunization (#1) 2025 SARS-COV-2 Immunization (3 - season) 2025 08/21/2021, 07/31/2021 Respiratory Syncytial Virus (RSV) Immunization (Adult) (1 - 1-dose 75+ series) 2059 DTaP/Tdap/Td Immunization Discontinued 1991, 07/03/1986, 07/03/1985, Additional history exists Hepatitis B Immunization Completed 015, 07/25/1999, 06/25/1999 Meningococcal Immunization (ACWY) Aged Out No longer eligible based on patient's age to complete this topic Pneumococcal Immunization Combined Aged Out No longer eligible based on patient's age to complete this topic Rotavirus Immunization Aged Out No lo nger eligible based on patient's age to complete this topic
[2025-10-12 20:30] VITALS: BP 116/61; PULSE 94; RESP 14; O2SAT 100
== END 2025-10-12 20:32 | disposition home or self-care (01) ==
PROVIDERS: Emergency Provider Registered Nurse; PCP Physician Assistant
DX: G43.909 Migraine, unspecified, not intractable, without status migrainosus (principal); I45.6 Pre-excitation syndrome; Z87.891 Personal history of nicotine dependence
CPT/HCPCS: 70450; 96365; 96375; 99284; J1100; J1200; J2765; J3475; J7030